=== PATIENT | female | born 1940 | race Caucasian/White ===

== ENCOUNTER 2019-02-14 20:26 | Emergency (ER) | payer MEDICARE, OTHER ==
[~2019-02-14] VITALS: Ht 170.2 cm; Wt 86.2 kg
[~2019-02-14 20:26] MED LIST: ACET325 PO; ATOR10 PO; ATOR20 PO; DIGO.125 PO; HYDACE5 PO; LISI5 PO; METF500 PO; PARO20 PO; SPIR25 PO; WARF2.5 PO
[2019-02-15] MEDS ORDERED: OXYM.05NI (15:05)
== END 2019-02-14 22:15 | disposition home or self-care (01) ==
LOC: ER 20:26
DX: R04.0 Epistaxis (principal); Z88.5 Allergy status to narcotic agent; Z88.8 Allergy status to other drugs, medicaments and biological substances; Z79.899 Other long term (current) drug therapy; Z79.01 Long term (current) use of anticoagulants; Z79.84 Long term (current) use of oral hypoglycemic drugs; F32.9 Major depressive disorder, single episode, unspecified; I50.9 Heart failure, unspecified; Z87.891 Personal history of nicotine dependence
CPT/HCPCS: 99283

== ENCOUNTER 2019-09-09 16:43 | Inpatient (IN) | payer MEDICARE ==
[~2019-09-09] VITALS: Ht 170.2 cm; Wt 99.6 kg
[~2019-09-09 16:43] MED LIST changes: -DIGO.125 PO; +DIGOX250 MCG PO; +OXYM.05NI
[2019-09-09 20:17] LABS: Source, Urine Clean Catch
[2019-09-09 20:20] LABS: Bilirubin, Urine Neg (Neg); Blood, Urine 2+ (Neg); Glucose Qualitative, Urine 4+ (Neg); Ketones, Urine 1+ (Neg); Leukocyte Esterase, Urine 1+ (Neg); Nitrite, Urine Pos (Neg); Protein, Urine 1+ (Neg); Urobilinogen, Urine NORM (Normal)
[2019-09-09 20:28] LABS: Appearance, Urine Hazy (Clear); Bacteria Many /hpf; Color, Urine Yellow (P-Yellow); Red Blood Cells, Urine 0-2 /hpf (0-2); Squamous Epithelial Cells Many /hpf (Few)
[2019-09-09 21:01] LABS: BASOPHILS ABSOLUTE AUTO 0.05 K/mm3 (0.00-0.23); BASOPHILS PERCENT AUTO 0 % (0-2); EOSINOPHILS ABSOLUTE AUTO 0.02 K/mm3 (0.00-0.68); EOSINOPHILS PERCENT AUTO 0 % (0-6); Hematocrit 36.8 % (33.0-51.0); Hemoglobin 12.6 g/dL (11.5-16.0); IMMATURE GRAN ABSOLUTE AUTO 0.05 K/mm3 (0.00-0.10); IMMATURE GRAN PERCENT AUTO 0 % (0-1); LYMPHOCYTES ABSOLUTE AUTO 1.05 K/mm3 (0.84-5.20); LYMPHOCYTES PERCENT AUTO 8 % (21-46); MONOCYTES ABSOLUTE AUTO 0.82 K/mm3 (0.16-1.47); MONOCYTES PERCENT AUTO 7 % (4-13); Mean Corpuscular HGB 31.7 pg (26.0-34.0); Mean Corpuscular HGB Conc 34.2 g/dL (31.5-36.5); Mean Corpuscular Volume 93 fL (80-100); Mean Platelet Volume 9.1 fL (9.1-12.4); NEUTROPHILS PERCENT AUTO 84 % (41-73); Platelet Count 227 K/mm3 (150-400); RDW Coefficient Variation 13.6 % (11.7-14.2); RDW Standard Deviation 46.2 fL (35.1-46.3); Red Blood Cell Count 3.98 M/mm3 (3.80-5.20); White Blood Cell Count 12.69 K/mm3 (4.00-11.30)
[2019-09-09 21:17] LABS: International Normalized Ratio 3.72
[2019-09-09 21:20] LABS: Alanine Aminotransfer (ALT/SGP 24 U/L (12-78); Albumin, Blood 3.3 g/dL (3.4-5.0); Albumin/Globulin Ratio 1.2 (0.8-1.8); Alk Phos 64 U/L (50-136); Anion Gap 8 mmol/L (6-16); Aspartate Aminotrans (AST/SGOT 29 U/L (12-37); Blood Urea Nitrogen 13 mg/dL (8-24); Bun/Creatinine Ratio 23.4 (12.0-20.0); CO2, Blood 24 mmol/L (21-32); Calcium, Blood 8.5 mg/dL (8.5-10.1); Chloride, Blood 107 mmol/L (98-108); Creatinine, Blood 0.56 mg/dL (0.40-1.00); Globulin, Blood 2.8 g/dL (2.2-4.0); Glomerular Filtration Rate >60 (60-); Glucose, Blood 219 mg/dL (70-99); Potassium, Blood 4.6 mmol/L (3.5-5.5); Sodium, Blood 139 mmol/L (136-145); Total Protein, Blood 6.1 g/dL (6.4-8.2)
[2019-09-09 23:35] LABS: Source, Urine Catheter
[2019-09-09 23:50] LABS: Bilirubin, Urine Neg (Neg); Blood, Urine 1+ (Neg); Glucose Qualitative, Urine 4+ (Neg); Ketones, Urine 1+ (Neg); Leukocyte Esterase, Urine 1+ (Neg); Nitrite, Urine Pos (Neg); Protein, Urine 1+ (Neg); Specific Gravity, Urine 1.025 (1.003-1.022); Urobilinogen, Urine NORM (Normal)
[2019-09-09 23:58] LABS: Appearance, Urine Hazy (Clear); Bacteria Many /hpf; Color, Urine Amber (P-Yellow); Red Blood Cells, Urine Rare /hpf (0-2); Squamous Epithelial Cells Rare /hpf (Few); White Blood Cells, Urine 0-2 /hpf (0-5)
--- NOTE | 2019-09-10 07:15 | NUR ---
Patient arrived from the ER at approximately 2044. labs were drawn in the ER just prior to discharge to the floor. Critical lab @2230 lactic acid 3.0. results called to Azul Maldonado NP. see orders for changes. form [id number], 3 liters of NS.09% were infused. along with antibiotics. A hathaway cath was placed due to femur fracture and IV fluids. another UA was sent from . patient slept sporatically throughtout the morning. repor to Jr lopez.
[2019-09-10 08:20] LABS: International Normalized Ratio 1.56
[2019-09-10 08:25] LABS: Prothrombin Time Results 15.9 Sec (9.7-11.5)
--- NOTE | 2019-09-10 09:32 | NUR ---
DR GONZALEZ IN AND APPLIED KNEE IMMOBILIZE TO RIGHT LEG
--- NOTE | 2019-09-10 18:00 | NUR ---
SUMMARY PATIENT ORIENTED TO PERSON, PLACE BUT HAS DIFFICULTY RECALLING PREVIOUS CONVERSATIONS SUCH THAT SHE WILL BE HAVING SURGERY TOMORROW. PT COOPERATIVE AND USES CALL LIGHT. RIGHT KNEE IMMOBILIZER IN PLACE AND PATIENT DENIES ANY NUMBNESS OR TINGLING OF EXTREMITIES
[2019-09-11 03:49] LABS: BASOPHILS ABSOLUTE AUTO 0.05 K/mm3 (0.00-0.23); BASOPHILS PERCENT AUTO 1 % (0-2); EOSINOPHILS ABSOLUTE AUTO 0.08 K/mm3 (0.00-0.68); EOSINOPHILS PERCENT AUTO 1 % (0-6); Hematocrit 27.5 % (33.0-51.0); Hemoglobin 9.2 g/dL (11.5-16.0); IMMATURE GRAN ABSOLUTE AUTO 0.04 K/mm3 (0.00-0.10); IMMATURE GRAN PERCENT AUTO 1 % (0-1); LYMPHOCYTES ABSOLUTE AUTO 1.15 K/mm3 (0.84-5.20); LYMPHOCYTES PERCENT AUTO 15 % (21-46); MONOCYTES ABSOLUTE AUTO 0.64 K/mm3 (0.16-1.47); MONOCYTES PERCENT AUTO 8 % (4-13); Mean Corpuscular HGB 31.2 pg (26.0-34.0); Mean Corpuscular HGB Conc 33.5 g/dL (31.5-36.5); Mean Corpuscular Volume 93 fL (80-100); Mean Platelet Volume 9.1 fL (9.1-12.4); NEUTROPHILS PERCENT AUTO 75 % (41-73); Platelet Count 162 K/mm3 (150-400); RDW Coefficient Variation 13.8 % (11.7-14.2); RDW Standard Deviation 46.4 fL (35.1-46.3); Red Blood Cell Count 2.95 M/mm3 (3.80-5.20); White Blood Cell Count 7.76 K/mm3 (4.00-11.30)
[2019-09-11 04:14] LABS: Alanine Aminotransfer (ALT/SGP 20 U/L (12-78); Albumin, Blood 2.7 g/dL (3.4-5.0); Albumin/Globulin Ratio 1.1 (0.8-1.8); Alk Phos 54 U/L (50-136); Anion Gap 7 mmol/L (6-16); Aspartate Aminotrans (AST/SGOT 17 U/L (12-37); Bilirubin, Total 1.4 mg/dL (0.1-1.0); Blood Urea Nitrogen 7 mg/dL (8-24); Bun/Creatinine Ratio 13.2 (12.0-20.0); CO2, Blood 26 mmol/L (21-32); Calcium, Blood 7.8 mg/dL (8.5-10.1); Chloride, Blood 107 mmol/L (98-108); Creatinine, Blood 0.53 mg/dL (0.40-1.00); Globulin, Blood 2.4 g/dL (2.2-4.0); Glomerular Filtration Rate >60 (60-); Glucose, Blood 165 mg/dL (70-99); Magnesium, Blood 1.9 mg/dL (1.6-2.4); Potassium, Blood 3.5 mmol/L (3.5-5.5); Sodium, Blood 140 mmol/L (136-145); Total Protein, Blood 5.1 g/dL (6.4-8.2)
[2019-09-11 04:57] LABS: Percent Saturation 27.3 % (15.0-50.0)
--- NOTE | 2019-09-11 05:22 | NUR ---
SHIFT SUMMARY PT IS ALERT, ORIENTED BUT WITH AN "OFF" DEMEANOR. FAMILY VOICES SOME CONCERN FOR EARLY ONSET ALZ. PT HAS REQUESTED TO SLEEP AND HAVE MINIMAL INTERRUPTIONS BY STAFF. NPO SINCE MIDNIGHT FOR PROCEDURE. CONT PULSE OX IN PLACE. TELEMETRY IN PLACE; NO ACUTE EVENTS. DENIES PAIN. WEAVER CATH DRAINING AND PATENT. NO OTHER CHANGES TO REPORT. WILL CONT TO MONIOTR AND PROVIDE CARE UNTIL PRESUMED BY ONCOMING RN.
--- NOTE | 2019-09-11 08:13 | NUR ---
09/11/19 0813 Slick Martinez PT HAS WEAVER CATH IN PLACE PRIOR TO ARRIVAL TO OR.
--- NOTE | 2019-09-11 08:19 | NUR ---
PT TAKEN TO SURGERY AT THIS TIME.
[2019-09-11 08:48] LABS: International Normalized Ratio 1.14; Prothrombin Time Results 11.9 Sec (9.7-11.5)
--- NOTE | 2019-09-11 12:56 | NUR ---
PT ARRIVED BACK TO THE ROOM AT APPROXIMATELY 1145. PT IS DROWSY BUT IS ABLE TO WAKE UP AND CARRY ON A CONVERSATION. PAIN MEDICATION PROVIDED. WILL CONTINUE TO MONITOR.
--- NOTE | 2019-09-11 15:42 | NUR ---
HOME MEDICATIONS HOME MEDICATION LIST UPDATED BASED ON CURRENT MEDICATION LIST FROM PATIENT'S PHARMACY. DR. ARIAS NOTIFIED.
--- NOTE | 2019-09-11 17:36 | NUR ---
SHIFT SUMMARY PAIN HAS BEEN MANAGED WITH PO AND IV PAIN MEDICATION. PT HAS BEEN ALERT AND ORIENTED POST-OP. SHE WAS ABLE TO WORK WITH THERAPY, BUT BECAME PAINFUL. TOLERATION PO WELL. VSS. WILL MONITOR UNTIL REPORT TO ONCOMING RN.
[2019-09-12 04:22] LABS: BASOPHILS ABSOLUTE AUTO 0.03 K/mm3 (0.00-0.23); BASOPHILS PERCENT AUTO 0 % (0-2); EOSINOPHILS ABSOLUTE AUTO 0.05 K/mm3 (0.00-0.68); EOSINOPHILS PERCENT AUTO 1 % (0-6); Hematocrit 24.8 % (33.0-51.0); Hemoglobin 8.4 g/dL (11.5-16.0); IMMATURE GRAN ABSOLUTE AUTO 0.07 K/mm3 (0.00-0.10); IMMATURE GRAN PERCENT AUTO 1 % (0-1); LYMPHOCYTES ABSOLUTE AUTO 1.24 K/mm3 (0.84-5.20); LYMPHOCYTES PERCENT AUTO 13 % (21-46); MONOCYTES ABSOLUTE AUTO 0.94 K/mm3 (0.16-1.47); MONOCYTES PERCENT AUTO 10 % (4-13); Mean Corpuscular HGB 32.2 pg (26.0-34.0); Mean Corpuscular HGB Conc 33.9 g/dL (31.5-36.5); Mean Corpuscular Volume 95 fL (80-100); Mean Platelet Volume 9.1 fL (9.1-12.4); NEUTROPHILS ABSOLUTE AUTO 7.58 K/mm3 (1.96-9.15); NEUTROPHILS PERCENT AUTO 77 % (41-73); NRBC ABSOLUTE 0.02 K/mm3 (0.00-0.02); NRBC Auto 0.2 /100 WBC (0.0-0.2); Platelet Count 177 K/mm3 (150-400); RDW Coefficient Variation 13.7 % (11.7-14.2); Red Blood Cell Count 2.61 M/mm3 (3.80-5.20); White Blood Cell Count 9.91 K/mm3 (4.00-11.30)
[2019-09-12 04:36] LABS: International Normalized Ratio 1.05; Prothrombin Time Results 11.1 Sec (9.7-11.5)
--- NOTE | 2019-09-12 04:40 | NUR ---
SHIFT SUMMARY POD 1 ORIF RIGHT FEMUR. PATIENT HAS BEEN AA0X4 DURING SHIFT. FORGETFUL AT TIMES. REDIRECTED WELL. VSS. MEDICATED FOR PAIN PER EMAR. TOELRATING WELL. PLEASANT THROUGHOUT SHIFT. SLEEPING THROUGHOUT SHIFT. RECEIVED A FACE MASK TO HELP SLEEP. WEAVER PATENT AND DRAINING. AQUACEL IN PLACE CDI.
[2019-09-12 04:41] LABS: Alanine Aminotransfer (ALT/SGP 22 U/L (12-78); Albumin, Blood 2.6 g/dL (3.4-5.0); Alk Phos 49 U/L (50-136); Anion Gap 4 mmol/L (6-16); Aspartate Aminotrans (AST/SGOT 15 U/L (12-37); Bilirubin, Total 0.9 mg/dL (0.1-1.0); Blood Urea Nitrogen 13 mg/dL (8-24); Bun/Creatinine Ratio 22.8 (12.0-20.0); CO2, Blood 28 mmol/L (21-32); Calcium, Blood 7.8 mg/dL (8.5-10.1); Chloride, Blood 104 mmol/L (98-108); Creatinine, Blood 0.57 mg/dL (0.40-1.00); Globulin, Blood 2.6 g/dL (2.2-4.0); Glomerular Filtration Rate >60 (60-); Glucose, Blood 165 mg/dL (70-99); Potassium, Blood 3.9 mmol/L (3.5-5.5); Sodium, Blood 136 mmol/L (136-145); Total Protein, Blood 5.2 g/dL (6.4-8.2)
[2019-09-12 09:45] LABS: International Normalized Ratio 1.04
--- NOTE | 2019-09-12 17:17 | NUR ---
SHIFT SUMMARY PT HAS BEEN IN BED MOST OF THE DAY. SHE HAD VISITORS TODAY. REPORTED NO PAIN EXCEPT WITH MOVEMENT. MEG LEE'Portillo AT 1700. PT UP TO CHAIR FOR DINNER. ATTENS IN PLACE, CALL LIGHT IN PLACE. DRESSINGS CDI. ASSISTED WITH ADL'S PRN.
--- NOTE | 2019-09-13 04:00 | NUR ---
SHIFT SUMMARY POD 2 PT RIGHT ORIF OF FEMUR PATIENT ALERT AND ORIENTED. CONFUSED AT TIME. DRESSINGS ON KNEE AND RIGHT LEG CDI. LEG IS SWOLLEN AND BRUISED WITH NO CHANGED NOTICED SINCE BEGINNING OF SHIFT. BRUISING ON BACK AND ABDOMEN UNCHANGED. PATIENT HAD WEAVER REMOVED YESTERDAY 09-12. PATIENT INC OF BLADDER AT TIMES BUT WILL CALL FOR BED OVALLE. HAS BEEN VOIDING WELL SINCE WEAVER REMOVED. DENIES PAIN. HAS BEEN RESTING IN BED DURING SHIFT.
[2019-09-13 04:49] LABS: BASOPHILS ABSOLUTE AUTO 0.04 K/mm3 (0.00-0.23); BASOPHILS PERCENT AUTO 0 % (0-2); EOSINOPHILS PERCENT AUTO 2 % (0-6); Hematocrit 22.3 % (33.0-51.0); Hemoglobin 7.6 g/dL (11.5-16.0); IMMATURE GRAN ABSOLUTE AUTO 0.12 K/mm3 (0.00-0.10); IMMATURE GRAN PERCENT AUTO 1 % (0-1); LYMPHOCYTES ABSOLUTE AUTO 1.48 K/mm3 (0.84-5.20); LYMPHOCYTES PERCENT AUTO 15 % (21-46); MONOCYTES ABSOLUTE AUTO 0.95 K/mm3 (0.16-1.47); MONOCYTES PERCENT AUTO 10 % (4-13); Mean Corpuscular HGB 32.3 pg (26.0-34.0); Mean Corpuscular HGB Conc 34.1 g/dL (31.5-36.5); Mean Corpuscular Volume 95 fL (80-100); Mean Platelet Volume 9.2 fL (9.1-12.4); NEUTROPHILS ABSOLUTE AUTO 6.95 K/mm3 (1.96-9.15); NEUTROPHILS PERCENT AUTO 71 % (41-73); NRBC ABSOLUTE 0.04 K/mm3 (0.00-0.02); NRBC Auto 0.4 /100 WBC (0.0-0.2); Platelet Count 182 K/mm3 (150-400); RDW Coefficient Variation 14.1 % (11.7-14.2); RDW Standard Deviation 47.6 fL (35.1-46.3); Red Blood Cell Count 2.35 M/mm3 (3.80-5.20); White Blood Cell Count 9.74 K/mm3 (4.00-11.30)
[2019-09-13 05:03] LABS: International Normalized Ratio 1.04
[2019-09-13 05:11] LABS: Anion Gap 8 mmol/L (6-16); Blood Urea Nitrogen 15 mg/dL (8-24); CO2, Blood 26 mmol/L (21-32); Calcium, Blood 7.8 mg/dL (8.5-10.1); Chloride, Blood 105 mmol/L (98-108); Glomerular Filtration Rate >60 (60-); Glucose, Blood 170 mg/dL (70-99); Potassium, Blood 3.4 mmol/L (3.5-5.5); Sodium, Blood 139 mmol/L (136-145)
--- NOTE | 2019-09-13 05:19 | NUR ---
CALLED DR SANTANA RELATED TO HBG OF 7.6, LEG SWELLING AND BRUISING ON BACK OF LEG. ORDERS FOR 1 UNIT PRBC GIVEN TO BE INFUSED. PATIENT DENIES NEEDS AT THIS TIME TIME. AND IS RESTING IN BED CALLING APPROPRIATLY.
--- NOTE | 2019-09-13 05:56 | NUR ---
BLOOD TRANSFUSION BEGAN. LUNG SOUNDS CLEAR. PATIENT LAYING IN BED.
--- NOTE | 2019-09-13 06:24 | NUR ---
H&H: DR GONZALEZ NOTIFIED OF PT AM H&H LEVELS. NOTIFIED OF INC SWELLING AND BRUISING. VITALS REVIEWED. NOTIFIED OF HOSPITALIST PLAN TO TRANSFUSE 1 UNIT PRBC THIS AM.
--- NOTE | 2019-09-13 07:43 | NUR ---
DISCUSSED PT'S STATUS OF RECIEVING BLOOD. DISCUSSED LOVENOX ORDERS/PLT COUNT. ISTRATE REPORTS TO GIVE LOVENOX ORDERED.
--- NOTE | 2019-09-13 08:09 | NUR ---
PT WORKING WITH THERAPY.
[2019-09-13 10:01] LABS: BASOPHILS ABSOLUTE AUTO 0.07 K/mm3 (0.00-0.23); BASOPHILS PERCENT AUTO 1 % (0-2); EOSINOPHILS ABSOLUTE AUTO 0.12 K/mm3 (0.00-0.68); EOSINOPHILS PERCENT AUTO 1 % (0-6); Hematocrit 25.4 % (33.0-51.0); Hemoglobin 8.3 g/dL (11.5-16.0); IMMATURE GRAN ABSOLUTE AUTO 0.11 K/mm3 (0.00-0.10); IMMATURE GRAN PERCENT AUTO 1 % (0-1); LYMPHOCYTES ABSOLUTE AUTO 0.81 K/mm3 (0.84-5.20); LYMPHOCYTES PERCENT AUTO 9 % (21-46); MONOCYTES ABSOLUTE AUTO 0.72 K/mm3 (0.16-1.47); MONOCYTES PERCENT AUTO 8 % (4-13); Mean Corpuscular HGB 30.9 pg (26.0-34.0); Mean Corpuscular HGB Conc 32.7 g/dL (31.5-36.5); Mean Corpuscular Volume 94 fL (80-100); Mean Platelet Volume 9.4 fL (9.1-12.4); NEUTROPHILS ABSOLUTE AUTO 6.77 K/mm3 (1.96-9.15); NEUTROPHILS PERCENT AUTO 79 % (41-73); NRBC ABSOLUTE 0.02 K/mm3 (0.00-0.02); NRBC Auto 0.2 /100 WBC (0.0-0.2); Platelet Count 194 K/mm3 (150-400); RDW Coefficient Variation 14.7 % (11.7-14.2); Red Blood Cell Count 2.69 M/mm3 (3.80-5.20)
--- NOTE | 2019-09-13 12:46 | NUR ---
DISCHARGE: PT RECENTLY DISCHARGED TO [facility] REPORT GIVEN TO LAURA. FAMILY PRESENT WHEN TRANSPORT WAS HERE TO GET PT. IV WAS OUT WNL. PT BEEN MED FOR PAIN. PT REPORTED HAVING FLU AND PNEUM SHOT ALREADY. PT SENT WITH BELONGINGS AND DRESSING SUPPLIES. [employer] ASSISTED WITH DISCHARGE. DR LEACHTRATE AWARE OF BLOOD REDRAW AFTER UNIT OF BLOOD AND WISHED TO PROCEED WITH DISCHARGE TODAY TO [facility] PT NOT DIZZY OR LIGHTHEADED.
== END 2019-09-13 12:30 | DRG 853 ==
LOC: ER 16:43 → SURS 18:25
PROVIDERS: Family Medicine; Nurse Practitioner Acute Care; Orthopaedic Surgery; Pharmacist; ADMIT Internal Medicine
PROC: 0QSB06Z Reposition Right Lower Femur with Intramedullary Internal Fixation Device, Open Approach (ICD-10-PCS; principal; 2019-09-09)
PROC: 3E02340 Introduction of Influenza Vaccine into Muscle, Percutaneous Approach (ICD-10-PCS; 2019-09-09)
DX: A41.9 Sepsis, unspecified organism (principal); S72.451B Displaced supracondylar fracture without intracondylar extension of lower end of right femur, initial encounter for open fracture type I or II; M97.01XA Periprosthetic fracture around internal prosthetic right hip joint, initial encounter; N39.0 Urinary tract infection, site not specified; I50.32 Chronic diastolic (congestive) heart failure; D62 Acute posthemorrhagic anemia; R65.20 Severe sepsis without septic shock; I48.91 Unspecified atrial fibrillation; Z23 Encounter for immunization; E78.5 Hyperlipidemia, unspecified; F32.9 Major depressive disorder, single episode, unspecified; E11.9 Type 2 diabetes mellitus without complications; I11.0 Hypertensive heart disease with heart failure; E66.01 Morbid (severe) obesity due to excess calories; Z96.653 Presence of artificial knee joint, bilateral; B96.20 Unspecified Escherichia coli [E. coli] as the cause of diseases classified elsewhere; Z79.01 Long term (current) use of anticoagulants
CPT/HCPCS: 36415; 36430; 71045; 73552; 73560-RT; 73700; 80048; 80053; 81001; 82607; 82728; 82746; 82947; 83036; 83540; 83550; 83605; 83735; 85025; 85610; 85730; 86850; 86900; 86901; 86923; 87040; 87077; 87086; 90670; 90686; 93005; 93010; 94762; 96374; 97163; 97166; 97530; 99285-25; A9270; A9270-GY; C1713; C1769; G0008; G0009; J0696; J1100; J1170; J1650; J2405; J2704; J3010; J3430; J7030; J7040; P9016

== ENCOUNTER → 2020-01-12 | Outpatient (CLI) | payer MEDICARE, OTHER ==
[2020-01-12 18:53] LABS: Appearance, Urine Hazy (Clear); Bilirubin, Urine Neg (Neg); Blood, Urine Neg (Neg); Color, Urine Yellow (P-Yellow); Glucose Qualitative, Urine Neg (Neg); Ketones, Urine 1+ (Neg); Leukocyte Esterase, Urine 1+ (Neg); Nitrite, Urine Neg (Neg); Protein, Urine Neg (Neg); Urobilinogen, Urine 1+ (Normal)
[2020-01-12 19:25] LABS: Mucus Mod (0-Heavy)
[2020-01-12 19:26] LABS: Bacteria Mod /hpf; Calcium Oxalate Crystals Few /hpf; Red Blood Cells, Urine 0-2 /hpf (0-2); Squamous Epithelial Cells Few /hpf (Few); Yeast/Fungi Urine Few /hpf
== END | disposition home or self-care (01) ==
LOC: LAB 18:45 → LAB SHORT 18:45
DX: N39.0 Urinary tract infection, site not specified (principal)
CPT/HCPCS: 81001; 87086

== ENCOUNTER → 2020-09-12 | Outpatient (CLI) | payer MEDICARE, OTHER ==
[~2020-09-12] MED LIST changes: +ASCO500 PO; +BISA10S PR; +DIGOX125 MC1 PO; +DOCU100 PO; +DULCOLAX400 MG/5 M PO; +FERSU300 PO; +LOPE2C PO; +Percocet 5-3251 EACH PO; +TUMS500 MG PO; +Ultram50 MG PO; +VITAMIN D3-ALO1 EACH PO
[2020-09-12 16:40] LABS: Protein, Urine Quantitative <5.0 mg/dL (0.0-11.9)
== END ==
LOC: LAB 11:21 → LAB SHORT 11:21 → LAB FUT 09-06 11:30
PROVIDERS: Internal Medicine Nephrology
DX: N18.30 Chronic kidney disease, stage 3 unspecified (principal); D63.1 Anemia in chronic kidney disease; N25.81 Secondary hyperparathyroidism of renal origin; E55.9 Vitamin D deficiency, unspecified; E78.00 Pure hypercholesterolemia, unspecified; D51.8 Other vitamin B12 deficiency anemias; D52.8 Other folate deficiency anemias; D50.9 Iron deficiency anemia, unspecified; R76.9 Abnormal immunological finding in serum, unspecified; R94.5 Abnormal results of liver function studies; R94.6 Abnormal results of thyroid function studies
CPT/HCPCS: 81050; 82043; 82570; 84156

== ENCOUNTER → 2021-01-09 | Outpatient (CLI) | payer MEDICARE, OTHER ==
[2021-01-09 20:13] LABS: BASOPHILS ABSOLUTE AUTO 0.07 K/mm3 (0.00-0.23); BASOPHILS PERCENT AUTO 1 % (0-2); EOSINOPHILS ABSOLUTE AUTO 0.13 K/mm3 (0.00-0.68); EOSINOPHILS PERCENT AUTO 2 % (0-6); Hemoglobin 15.5 g/dL (11.5-16.0); IMMATURE GRAN ABSOLUTE AUTO 0.02 K/mm3 (0.00-0.10); IMMATURE GRAN PERCENT AUTO 0 % (0-1); LYMPHOCYTES ABSOLUTE AUTO 1.47 K/mm3 (0.84-5.20); LYMPHOCYTES PERCENT AUTO 20 % (21-46); MONOCYTES ABSOLUTE AUTO 0.55 K/mm3 (0.16-1.47); MONOCYTES PERCENT AUTO 7 % (4-13); Mean Corpuscular HGB 31.1 pg (26.0-34.0); Mean Corpuscular HGB Conc 33.7 g/dL (31.5-36.5); Mean Corpuscular Volume 92 fL (80-100); Mean Platelet Volume 9.6 fL (9.1-12.4); NEUTROPHILS ABSOLUTE AUTO 5.21 K/mm3 (1.96-9.15); NEUTROPHILS PERCENT AUTO 70 % (41-73); Platelet Count 252 K/mm3 (150-400); RDW Coefficient Variation 12.9 % (11.7-14.2); RDW Standard Deviation 43.5 fL (35.1-46.3); Red Blood Cell Count 4.99 M/mm3 (3.80-5.20); White Blood Cell Count 7.45 K/mm3 (4.00-11.30)
[2021-01-09 20:16] LABS: International Normalized Ratio 2.1; Prothrombin Time Results 21.5 Sec (9.7-11.5)
[2021-01-09 20:32] LABS: Cholesterol 183 mg/dL (50-200); Ferritin, Serum 59 ng/mL (8-252); HDL Cholesterol 46 mg/dL (>39); LDL/HDL RATIO 1.4; Low Density Lipoprotein Chol 63 mg/dL (0-110); Triglycerides 371 mg/dL (30-160); Very Low Density Lipoprot Chol 74 mg/dL (6-32)
[2021-01-10 20:41] LABS: Alanine Aminotransfer (ALT/SGP 20 U/L (12-78); Albumin, Blood 3.7 g/dL (3.4-5.0); Alk Phos 68 U/L (50-136); Anion Gap 8 mmol/L (6-16); Aspartate Aminotrans (AST/SGOT 16 U/L (12-37); Bilirubin, Total 0.6 mg/dL (0.1-1.0); Blood Urea Nitrogen 20 mg/dL (8-24); Bun/Creatinine Ratio 27.3 (12.0-20.0); CO2, Blood 24 mmol/L (21-32); Calcium, Blood 8.5 mg/dL (8.5-10.1); Chloride, Blood 104 mmol/L (98-108); Creatinine, Blood 0.73 mg/dL (0.40-1.00); Globulin, Blood 3.6 g/dL (2.2-4.0); Glomerular Filtration Rate >60 (60-); Glucose, Blood 86 mg/dL (70-99); Sodium, Blood 136 mmol/L (136-145); Total Protein, Blood 7.3 g/dL (6.4-8.2)
== END | disposition home or self-care (01) ==
LOC: LAB 18:12 → LAB SHORT 18:12
PROVIDERS: Registered Nurse
DX: E11.9 Type 2 diabetes mellitus without complications (principal); D64.9 Anemia, unspecified; I48.91 Unspecified atrial fibrillation; E78.5 Hyperlipidemia, unspecified; I10 Essential (primary) hypertension
CPT/HCPCS: 80053; 80061; 80162; 82728; 83036; 83880; 85025; 85610

== ENCOUNTER → 2021-02-05 | Outpatient (CLI) | payer MEDICARE, OTHER ==
[~2021-02-05] MED LIST changes: -ASCO500 PO; -BISA10S PR; -DIGOX125 MC1 PO; -DOCU100 PO; -DULCOLAX400 MG/5 M PO; -FERSU300 PO; -LOPE2C PO; -Percocet 5-3251 EACH PO; -TUMS500 MG PO; -VITAMIN D3-ALO1 EACH PO
[2021-02-05 12:40] LABS: Source, Urine Clean Catch
[2021-02-05 13:09] LABS: Appearance, Urine Cloudy (Clear); Bilirubin, Urine Neg (Neg); Blood, Urine 1+ (Neg); Color, Urine Yellow (P-Yellow); Glucose Qualitative, Urine 1+ (Neg); Ketones, Urine 2+ (Neg); Leukocyte Esterase, Urine 1+ (Neg); Nitrite, Urine Neg (Neg); Protein, Urine 1+ (Neg); Specific Gravity, Urine 1.025 (1.003-1.022); Urobilinogen, Urine 2+ (Normal)
[2021-02-05 13:42] LABS: Bacteria Many /hpf; Squamous Epithelial Cells Many /hpf (Few)
== END | disposition home or self-care (01) ==
LOC: LAB SHORT 11:00
PROVIDERS: Nurse Practitioner Family
DX: E11.29 Type 2 diabetes mellitus with other diabetic kidney complication (principal)
CPT/HCPCS: 81001; 87086

== ENCOUNTER 2021-02-27 09:20 | Emergency (ER) | payer MEDICARE, OTHER ==
[~2021-02-27] VITALS: Ht 170.2 cm; Wt 80.7 kg
== END 2021-02-27 14:21 | disposition home or self-care (01) ==
LOC: ER 09:20
DX: S40.012A Contusion of left shoulder, initial encounter (principal); S70.02XA Contusion of left hip, initial encounter; E78.00 Pure hypercholesterolemia, unspecified; I11.0 Hypertensive heart disease with heart failure; I50.9 Heart failure, unspecified; I48.91 Unspecified atrial fibrillation; Z88.5 Allergy status to narcotic agent; Z88.8 Allergy status to other drugs, medicaments and biological substances; Z79.01 Long term (current) use of anticoagulants; Z79.899 Other long term (current) drug therapy; W18.30XA Fall on same level, unspecified, initial encounter
CPT/HCPCS: 71045; 73060; 73502; 99284-25; A9270

== ENCOUNTER 2021-03-02 19:22 | Emergency (ER) | payer MEDICARE, OTHER ==
[~2021-03-02] VITALS: Ht 170.2 cm; Wt 81.7 kg
[2021-03-02] MEDS ORDERED: TUMS500 MG PO (19:52)
[2021-03-02] MEDS ORDERED: DOCU100 PO (19:53)
[2021-03-02] MEDS ORDERED: DIGOX125 MC1 PO (19:53)
[2021-03-02] MEDS ORDERED: FERSU300 PO (19:54)
[2021-03-02] MEDS ORDERED: VITAMIN D3-ALO1 EACH PO (19:55)
[2021-03-02] MEDS ORDERED: ASCO500 PO (19:55)
[2021-03-02] MEDS ORDERED: Percocet 5-3251 EACH PO (19:57)
[2021-03-02] MEDS ORDERED: BISA10S PR (20:00)
[2021-03-02] MEDS ORDERED: LOPE2C PO (20:01)
[2021-03-02] MEDS ORDERED: DULCOLAX400 MG/5 M PO (20:02)
== END 2021-03-02 21:45 | disposition home or self-care (01) ==
LOC: ER 19:22
DX: S20.224A Contusion of middle back wall of thorax, initial encounter (principal); E78.5 Hyperlipidemia, unspecified; I11.0 Hypertensive heart disease with heart failure; I50.9 Heart failure, unspecified; I48.91 Unspecified atrial fibrillation; Z79.01 Long term (current) use of anticoagulants; Z88.5 Allergy status to narcotic agent; Z79.899 Other long term (current) drug therapy; W01.198A Fall on same level from slipping, tripping and stumbling with subsequent striking against other object, initial encounter
CPT/HCPCS: 72070; 99283-25; A9270

== ENCOUNTER 2021-03-11 16:36 | Emergency (ER) | payer MEDICARE, OTHER ==
[~2021-03-11] VITALS: Ht 170.2 cm; Wt 95.2 kg
[~2021-03-11 16:36] MED LIST changes: +ASCO500 PO; +BISA10S PR; +DIGOX125 MC1 PO; +DOCU100 PO; +DULCOLAX400 MG/5 M PO; +FERSU300 PO; +LOPE2C PO; +Percocet 5-3251 EACH PO; +TUMS500 MG PO; +VITAMIN D3-ALO1 EACH PO
== END 2021-03-11 19:57 | disposition home or self-care (01) ==
LOC: ER 16:36
DX: S00.11XA Contusion of right eyelid and periocular area, initial encounter (principal); I11.0 Hypertensive heart disease with heart failure; I50.9 Heart failure, unspecified; I48.91 Unspecified atrial fibrillation; E78.5 Hyperlipidemia, unspecified; Z79.01 Long term (current) use of anticoagulants; Z88.8 Allergy status to other drugs, medicaments and biological substances; Z88.5 Allergy status to narcotic agent; Z79.899 Other long term (current) drug therapy; W01.10XA Fall on same level from slipping, tripping and stumbling with subsequent striking against unspecified object, initial encounter
CPT/HCPCS: 70450; 72125; 99284-25

== ENCOUNTER → 2021-03-12 | Outpatient (CLI) | payer MEDICARE, OTHER ==
[2021-03-12 11:13] LABS: Source, Urine Clean Catch
[2021-03-12 12:39] LABS: Appearance, Urine Hazy (Clear); Bilirubin, Urine Neg (Neg); Blood, Urine Neg (Neg); Color, Urine Yellow (P-Yellow); Glucose Qualitative, Urine Neg (Neg); Ketones, Urine 1+ (Neg); Leukocyte Esterase, Urine 1+ (Neg); Nitrite, Urine Neg (Neg); Protein, Urine 2+ (Neg); Specific Gravity, Urine 1.015 (1.003-1.022); Urobilinogen, Urine 3+ (Normal); pH, Urine 6.5 (5.0-8.0)
[2021-03-12 13:09] LABS: Bacteria Many /hpf; Red Blood Cells, Urine 0-2 /hpf (0-2); Squamous Epithelial Cells Few /hpf (Few)
== END ==
LOC: LAB SHORT 10:15 → OLS 10:15
PROVIDERS: Family Medicine
DX: N39.0 Urinary tract infection, site not specified (principal); Z88.5 Allergy status to narcotic agent; Z88.8 Allergy status to other drugs, medicaments and biological substances
CPT/HCPCS: 81001; 87086

== ENCOUNTER → 2021-03-16 | Outpatient (CLI) | payer MEDICARE, OTHER ==
[2021-03-16 13:36] LABS: Prothrombin Time Results 46.6 Sec (9.7-11.5)
[2021-03-16 13:49] LABS: International Normalized Ratio 4.71
== END | disposition home or self-care (01) ==
LOC: LAB 10:01 → LAB SHORT 10:01 → LAB FUT 12-13 12:15
PROVIDERS: Nurse Practitioner Family
DX: E78.5 Hyperlipidemia, unspecified (principal); I48.91 Unspecified atrial fibrillation; E11.9 Type 2 diabetes mellitus without complications; D64.9 Anemia, unspecified
CPT/HCPCS: 36415; 85610

== ENCOUNTER 2021-03-22 09:27 | Day surgery (SDC) | payer MEDICARE, OTHER ==
[~2021-03-22] VITALS: Ht 170.2 cm; Wt 83.7 kg
--- NOTE | 2021-03-22 09:43 | NUR ---
03/22/21 0943 Ebony Burton CHARTING BY VONNIE AIKEN RN
== END 2021-03-22 11:30 | disposition home or self-care (01) ==
LOC: ORSCSDS 09:27
PROVIDERS: Ophthalmology
PROC: 08RK3JZ Replacement of Left Lens with Synthetic Substitute, Percutaneous Approach (ICD-10-PCS; principal; 2021-03-22 10:30)
DX: H25.12 Age-related nuclear cataract, left eye (principal); I10 Essential (primary) hypertension; I50.9 Heart failure, unspecified; E11.9 Type 2 diabetes mellitus without complications; Z79.84 Long term (current) use of oral hypoglycemic drugs; Z79.899 Other long term (current) drug therapy
CPT/HCPCS: 82947; J1100; J2001; J2250; J2405; J3010; J3301; J7040; V2632

== ENCOUNTER 2021-04-12 08:29 | Day surgery (SDC) | payer MEDICARE, OTHER ==
[~2021-04-12] VITALS: Ht 170.2 cm; Wt 82.1 kg
--- NOTE | 2021-04-12 09:05 | NUR ---
04/12/21 0905 Kain Moses TETRACAINE ADMINISTERED INTO THE RIGHT EYE PER ORDERS AT 0854 AND PLEDGET ADMINISTERED AT 0855
== END 2021-04-12 10:27 | disposition home or self-care (01) ==
LOC: ORSCSDS 08:29
PROVIDERS: Ophthalmology
PROC: 08RJ3JZ Replacement of Right Lens with Synthetic Substitute, Percutaneous Approach (ICD-10-PCS; principal; 2021-04-12 09:15)
DX: H25.11 Age-related nuclear cataract, right eye (principal); I48.91 Unspecified atrial fibrillation; Z79.01 Long term (current) use of anticoagulants; Z79.899 Other long term (current) drug therapy
CPT/HCPCS: 82947; J2001; J2250; J3010; J3301; J7040; V2632

== ENCOUNTER → 2021-05-18 | Outpatient (CLI) | payer MEDICARE, OTHER ==
[~2021-05-18] MED LIST changes: +ATORVASTATIN CA20 MG PO; +PAXIL40 M1 PO; +VITAMIN D31000 UNI1 PO; +WARF5 PO
[2021-05-18 17:07] LABS: Appearance, Urine Clear (Clear); Bilirubin, Urine Neg (Neg); Blood, Urine Neg (Neg); Color, Urine Yellow (P-Yellow); Glucose Qualitative, Urine Neg (Neg); Ketones, Urine Neg (Neg); Leukocyte Esterase, Urine Neg (Neg); Nitrite, Urine Neg (Neg); Protein, Urine 1+ (Neg); Urobilinogen, Urine NORM (Normal)
== END | disposition home or self-care (01) ==
LOC: LAB 13:40 → LAB SHORT 13:40
PROVIDERS: Nurse Practitioner Family
DX: N39.0 Urinary tract infection, site not specified (principal)
CPT/HCPCS: 87086

== ENCOUNTER 2021-06-21 13:52 | Emergency (ER) | payer MEDICARE, OTHER ==
[~2021-06-21] VITALS: Ht 170.2 cm; Wt 81.7 kg
[~2021-06-21 13:52] MED LIST changes: -ATORVASTATIN CA20 MG PO; -PAXIL40 M1 PO; -VITAMIN D31000 UNI1 PO; -WARF5 PO
[2021-06-21 14:15] LABS: BASOPHILS ABSOLUTE AUTO 0.06 K/mm3 (0.00-0.23); BASOPHILS PERCENT AUTO 1 % (0-2); EOSINOPHILS ABSOLUTE AUTO 0.14 K/mm3 (0.00-0.68); EOSINOPHILS PERCENT AUTO 2 % (0-6); Hematocrit 42.6 % (33.0-51.0); Hemoglobin 14.3 g/dL (11.5-16.0); IMMATURE GRAN ABSOLUTE AUTO 0.02 K/mm3 (0.00-0.10); IMMATURE GRAN PERCENT AUTO 0 % (0-1); LYMPHOCYTES ABSOLUTE AUTO 1.52 K/mm3 (0.84-5.20); LYMPHOCYTES PERCENT AUTO 20 % (21-46); MONOCYTES ABSOLUTE AUTO 0.59 K/mm3 (0.16-1.47); MONOCYTES PERCENT AUTO 8 % (4-13); Mean Corpuscular HGB 30.6 pg (26.0-34.0); Mean Corpuscular HGB Conc 33.6 g/dL (31.5-36.5); Mean Corpuscular Volume 91 fL (80-100); NEUTROPHILS ABSOLUTE AUTO 5.27 K/mm3 (1.96-9.15); NEUTROPHILS PERCENT AUTO 69 % (41-73); Platelet Count 219 K/mm3 (150-400); RDW Coefficient Variation 13.3 % (11.7-14.2); RDW Standard Deviation 44.9 fL (35.1-46.3); Red Blood Cell Count 4.68 M/mm3 (3.80-5.20)
[2021-06-21] MEDS ORDERED: ATORVASTATIN CA20 MG PO (14:30)
[2021-06-21] MEDS ORDERED: DIGOX125 MC1 PO (14:31)
[2021-06-21] MEDS ORDERED: FERSU300 PO (14:31)
[2021-06-21] MEDS ORDERED: DOCU100 PO (14:31)
[2021-06-21] MEDS ORDERED: PAXIL40 M1 PO (14:32)
[2021-06-21] MEDS ORDERED: VITAMIN D31000 UNI1 PO (14:32)
[2021-06-21] MEDS ORDERED: ASCO500 PO (14:32)
[2021-06-21] MEDS ORDERED: METF500 PO (14:32)
[2021-06-21] MEDS ORDERED: WARF5 PO ×2 (14:33→14:34)
[2021-06-21 14:39] LABS: International Normalized Ratio 4.65
[2021-06-21 14:47] LABS: Alanine Aminotransfer (ALT/SGP 21 U/L (12-78); Albumin, Blood 3.4 g/dL (3.4-5.0); Albumin/Globulin Ratio 1.2 (0.8-1.8); Alk Phos 57 U/L (50-136); Anion Gap 6 mmol/L (6-16); Aspartate Aminotrans (AST/SGOT 15 U/L (12-37); Beta HCG, Quantitative, Serum 3 mIU/mL (0-3); Bilirubin, Total 0.4 mg/dL (0.1-1.0); Blood Urea Nitrogen 12 mg/dL (8-24); Bun/Creatinine Ratio 21.7 (12.0-20.0); CO2, Blood 27 mmol/L (21-32); Chloride, Blood 105 mmol/L (98-108); Creatinine, Blood 0.55 mg/dL (0.40-1.00); Ethanol (Alcohol), Blood, Med 4 mg/dL; Globulin, Blood 2.9 g/dL (2.2-4.0); Glomerular Filtration Rate >60 (60-); Glucose, Blood 149 mg/dL (70-99); Potassium, Blood 3.8 mmol/L (3.5-5.5); Sodium, Blood 138 mmol/L (136-145); Total Protein, Blood 6.3 g/dL (6.4-8.2)
[2021-06-21 15:05] LABS: Source, Urine Catheter
[2021-06-21 15:20] LABS: Appearance, Urine Hazy (Clear); Bilirubin, Urine Neg (Neg); Blood, Urine Neg (Neg); Color, Urine Amber (P-Yellow); Glucose Qualitative, Urine Neg (Neg); Ketones, Urine Neg (Neg); Leukocyte Esterase, Urine Neg (Neg); Nitrite, Urine Neg (Neg); Protein, Urine Neg (Neg); Specific Gravity, Urine 1.025 (1.003-1.022); Urobilinogen, Urine NORM (Normal)
[2021-06-21 15:49] LABS: Bacteria Many /hpf; Squamous Epithelial Cells Mod /hpf (Few)
[2021-06-21 15:50] LABS: Calcium Oxalate Crystals Mod /hpf
[2021-06-21 15:51] LABS: Mucus Light (0-Heavy)
== END 2021-06-21 18:37 | disposition home or self-care (01) ==
LOC: ER 13:52
PROVIDERS: Student in an Organized Health Care Education/Training Program
DX: S00.11XA Contusion of right eyelid and periocular area, initial encounter (principal); R79.1 Abnormal coagulation profile; I11.0 Hypertensive heart disease with heart failure; I50.9 Heart failure, unspecified; I48.91 Unspecified atrial fibrillation; E78.5 Hyperlipidemia, unspecified; Z88.5 Allergy status to narcotic agent; Z88.8 Allergy status to other drugs, medicaments and biological substances; Z79.899 Other long term (current) drug therapy; Z79.01 Long term (current) use of anticoagulants; Z79.84 Long term (current) use of oral hypoglycemic drugs; W18.30XA Fall on same level, unspecified, initial encounter
CPT/HCPCS: 70450; 72125; 80053; 81001; 83690; 84702; 85025; 85610; 87086; 93005; 93010; G0480; P9612

== ENCOUNTER 2021-07-20 11:03 | Emergency (ER) | payer MEDICARE, OTHER ==
[~2021-07-20] VITALS: Ht 165.1 cm; Wt 70.3 kg
[~2021-07-20 11:03] MED LIST changes: +ATORVASTATIN CA20 MG PO; +PAXIL40 M1 PO; +VITAMIN D31000 UNI1 PO; +WARF5 PO
== END 2021-07-20 14:53 | disposition home or self-care (01) ==
LOC: ER 11:03
DX: S80.11XA Contusion of right lower leg, initial encounter (principal); M79.662 Pain in left lower leg; W19.XXXA Unspecified fall, initial encounter
CPT/HCPCS: 73590; 99283-25

== ENCOUNTER 2021-09-16 13:38 | Emergency (ER) | payer MEDICARE, OTHER ==
[~2021-09-16] VITALS: Ht 170.2 cm; Wt 90.7 kg
[2021-09-16 14:15] LABS: Source, Urine Clean Catch
[2021-09-16 14:20] LABS: Appearance, Urine Cloudy (Clear); Bilirubin, Urine Neg (Neg); Blood, Urine 5+ (Neg); Color, Urine Yellow (P-Yellow); Glucose Qualitative, Urine Neg (Neg); Ketones, Urine 1+ (Neg); Leukocyte Esterase, Urine 3+ (Neg); Nitrite, Urine Pos (Neg); Protein, Urine 3+ (Neg); Specific Gravity, Urine 1.015 (1.003-1.022); Urobilinogen, Urine 1+ (Normal)
[2021-09-16] MEDS ORDERED: MYLANTA MAXIMUM10 ML PO (14:35)
[2021-09-16] MEDS ORDERED: Acetaminophen650 M1 PO (14:35)
[2021-09-16] MEDS ORDERED: BISA10S PR (14:35)
[2021-09-16] MEDS ORDERED: ONDA4 PO (14:36)
[2021-09-16] MEDS ORDERED: LOPE2C PO (14:36)
[2021-09-16] MEDS ORDERED: DULCOLAX400 MG/5 M PO (14:36)
[2021-09-16] MEDS ORDERED: SENNA LAXATIVE8.6 MG PO (14:37)
[2021-09-16] MEDS ORDERED: Percocet 5-3251 EACH PO (14:37)
[2021-09-16 14:44] LABS: Bacteria Many /hpf; Red Blood Cells, Urine 25-50 /hpf (0-2); Squamous Epithelial Cells Many /hpf (Few)
[2021-09-16 14:45] LABS: Amorphous Mod (0-Heavy); Mucus Light (0-Heavy)
== END 2021-09-16 17:34 | disposition home or self-care (01) ==
LOC: ER 13:38
PROVIDERS: Student in an Organized Health Care Education/Training Program
DX: S80.02XA Contusion of left knee, initial encounter (principal); S60.222A Contusion of left hand, initial encounter; S70.02XA Contusion of left hip, initial encounter; N39.0 Urinary tract infection, site not specified; M16.0 Bilateral primary osteoarthritis of hip; M19.041 Primary osteoarthritis, right hand; E78.5 Hyperlipidemia, unspecified; I11.0 Hypertensive heart disease with heart failure; I50.9 Heart failure, unspecified; I48.91 Unspecified atrial fibrillation; D64.9 Anemia, unspecified; Z88.5 Allergy status to narcotic agent; Z79.899 Other long term (current) drug therapy; Z79.84 Long term (current) use of oral hypoglycemic drugs; Z79.01 Long term (current) use of anticoagulants; W19.XXXA Unspecified fall, initial encounter
CPT/HCPCS: 73100; 73120; 73502; 73562-LT; 81001; 87086; 99284-25; A9270

== ENCOUNTER 2021-09-25 23:23 | Inpatient (IN) | payer MEDICARE, OTHER ==
[~2021-09-25] VITALS: Ht 170.2 cm; Wt 80.3 kg
[~2021-09-25 23:23] MED LIST changes: +Acetaminophen650 M1 PO; +MYLANTA MAXIMUM10 ML PO; +ONDA4 PO; +SENNA LAXATIVE8.6 MG PO
[2021-09-26 01:26] LABS: BASOPHILS ABSOLUTE AUTO 0.06 K/mm3 (0.00-0.23); BASOPHILS PERCENT AUTO 1 % (0-2); EOSINOPHILS ABSOLUTE AUTO 0.11 K/mm3 (0.00-0.68); EOSINOPHILS PERCENT AUTO 1 % (0-6); Hematocrit 31.5 % (33.0-51.0); Hemoglobin 10.7 g/dL (11.5-16.0); IMMATURE GRAN ABSOLUTE AUTO 0.05 K/mm3 (0.00-0.10); IMMATURE GRAN PERCENT AUTO 0 % (0-1); LYMPHOCYTES ABSOLUTE AUTO 1.35 K/mm3 (0.84-5.20); LYMPHOCYTES PERCENT AUTO 10 % (21-46); MONOCYTES ABSOLUTE AUTO 0.78 K/mm3 (0.16-1.47); MONOCYTES PERCENT AUTO 6 % (4-13); Mean Corpuscular HGB 31.6 pg (26.0-34.0); Mean Corpuscular Volume 93 fL (80-100); Mean Platelet Volume 9.1 fL (9.1-12.4); NEUTROPHILS ABSOLUTE AUTO 10.65 K/mm3 (1.96-9.15); NEUTROPHILS PERCENT AUTO 82 % (41-73); Platelet Count 273 K/mm3 (150-400); RDW Coefficient Variation 13.2 % (11.7-14.2); Red Blood Cell Count 3.39 M/mm3 (3.80-5.20)
[2021-09-26 01:57] LABS: Prothrombin Time Results >90.0 Sec (9.7-11.5)
[2021-09-26 01:58] LABS: Alanine Aminotransfer (ALT/SGP 28 U/L (12-78); Albumin, Blood 3.1 g/dL (3.4-5.0); Alk Phos 63 U/L (50-136); Anion Gap 12 mmol/L (6-16); Aspartate Aminotrans (AST/SGOT 31 U/L (12-37); Bilirubin, Total 1.1 mg/dL (0.1-1.0); Blood Urea Nitrogen 21 mg/dL (8-24); Bun/Creatinine Ratio 24.4 (12.0-20.0); CO2, Blood 24 mmol/L (21-32); Calcium, Blood 9.1 mg/dL (8.5-10.1); Chloride, Blood 101 mmol/L (98-108); Creatinine, Blood 0.86 mg/dL (0.40-1.00); Digoxin (Lanoxin) 0.92 ug/mL (0.80-2.00); Globulin, Blood 3.1 g/dL (2.2-4.0); Glomerular Filtration Rate >60 (60-); Glucose, Blood 136 mg/dL (70-99); International Normalized Ratio >10.00; Magnesium, Blood 1.7 mg/dL (1.6-2.4); Potassium, Blood 4.2 mmol/L (3.5-5.5); Sodium, Blood 137 mmol/L (136-145); Total Protein, Blood 6.2 g/dL (6.4-8.2); Troponin I <0.015 ng/mL (0.000-0.040)
[2021-09-26 02:41] LABS: Source, Urine Clean Catch
[2021-09-26 02:49] LABS: Appearance, Urine Hazy (Clear); Bilirubin, Urine Neg (Neg); Blood, Urine Neg (Neg); Color, Urine Amber (P-Yellow); Glucose Qualitative, Urine Neg (Neg); Ketones, Urine 1+ (Neg); Leukocyte Esterase, Urine 1+ (Neg); Nitrite, Urine Neg (Neg); Protein, Urine 2+ (Neg); Specific Gravity, Urine 1.025 (1.003-1.022); Urobilinogen, Urine 2+ (Normal)
[2021-09-26 03:04] LABS: Bacteria Many /hpf; Squamous Epithelial Cells Rare /hpf (Few)
[2021-09-26 03:05] LABS: Uric Acid Crystals Mod /hpf
[2021-09-26 04:09] LABS: BASOPHILS ABSOLUTE AUTO 0.05 K/mm3 (0.00-0.23); BASOPHILS PERCENT AUTO 1 % (0-2); EOSINOPHILS ABSOLUTE AUTO 0.15 K/mm3 (0.00-0.68); EOSINOPHILS PERCENT AUTO 1 % (0-6); Hematocrit 27.6 % (33.0-51.0); Hemoglobin 9.3 g/dL (11.5-16.0); IMMATURE GRAN ABSOLUTE AUTO 0.04 K/mm3 (0.00-0.10); IMMATURE GRAN PERCENT AUTO 0 % (0-1); LYMPHOCYTES ABSOLUTE AUTO 1.81 K/mm3 (0.84-5.20); LYMPHOCYTES PERCENT AUTO 17 % (21-46); MONOCYTES ABSOLUTE AUTO 0.75 K/mm3 (0.16-1.47); MONOCYTES PERCENT AUTO 7 % (4-13); Mean Corpuscular HGB 31.3 pg (26.0-34.0); Mean Corpuscular HGB Conc 33.7 g/dL (31.5-36.5); Mean Corpuscular Volume 93 fL (80-100); Mean Platelet Volume 9.1 fL (9.1-12.4); NEUTROPHILS ABSOLUTE AUTO 7.81 K/mm3 (1.96-9.15); NEUTROPHILS PERCENT AUTO 74 % (41-73); Platelet Count 258 K/mm3 (150-400); RDW Coefficient Variation 13.2 % (11.7-14.2); Red Blood Cell Count 2.97 M/mm3 (3.80-5.20); White Blood Cell Count 10.61 K/mm3 (4.00-11.30)
[2021-09-26 08:19] LABS: Alanine Aminotransfer (ALT/SGP 27 U/L (12-78); Albumin, Blood 2.9 g/dL (3.4-5.0); Albumin/Globulin Ratio 1.2 (0.8-1.8); Alk Phos 58 U/L (50-136); Anion Gap 8 mmol/L (6-16); Aspartate Aminotrans (AST/SGOT 23 U/L (12-37); Bilirubin, Total 1.2 mg/dL (0.1-1.0); Blood Urea Nitrogen 22 mg/dL (8-24); Bun/Creatinine Ratio 27.6 (12.0-20.0); CO2, Blood 30 mmol/L (21-32); Calcium, Blood 8.8 mg/dL (8.5-10.1); Chloride, Blood 102 mmol/L (98-108); Globulin, Blood 2.4 g/dL (2.2-4.0); Glomerular Filtration Rate >60 (60-); Glucose, Blood 115 mg/dL (70-99); Potassium, Blood 3.8 mmol/L (3.5-5.5); Sodium, Blood 140 mmol/L (136-145); Total Protein, Blood 5.3 g/dL (6.4-8.2)
[2021-09-26 08:47] LABS: International Normalized Ratio 1.33
[2021-09-26 09:07] LABS: Prothrombin Time Results 13.7 Sec (9.7-11.5)
--- NOTE | 2021-09-26 14:49 | NUR ---
Assumed Care Received report from SUE Gipson-RN. Patient arrived via [facility] with one bag of personal belongings. 2p max with gait belt to transfer from gurney to bed. C/O pain to L hip. Fearful of falling. Able to bear some weight on both lower extremities. A/O to self. Med rec incomplete, patient is fairly confused. Settled to room, call light in reach. Bed alarm on and bed in lowest position. KAMILLE.
[2021-09-26] MEDS ORDERED: ACET500 PO ×2 (15:27→15:28)
[2021-09-26] MEDS ORDERED: Acetaminophen650 M1 PO (15:30)
--- NOTE | 2021-09-26 18:43 | NUR ---
Shift Summary A/O to self. Impulsive and attempting to climb out of bed. High fall risk as patient has had multiple falls at home. C/O 07/22 L hip pain with brief changes and repositioning. Has an abrasion to L knee, wound cleansed and dressed, photo taken. Increased weakness requiring 2p max assist. Incontinent. Appetite is fair. WCTM.
--- NOTE | 2021-09-27 06:03 | NUR ---
SHIFT SUMMARY ASSUMED CARE AT 1900. PT CONFUSED AND AT TIMES AGITATED. LAST NIGHT, HOSPITALIST WAS NOTIFIED ABOUT PT'S AGITATION AND NEW ORDERS WERE RECEIVED. IV HALDOL WAS NOT GIVEN LAST NIGHT DESPITE PT'S AGITATION BECAUSE OF PT'S BLOOD PRESSURE. PT DID EVENTUALLY CALM DOWN AND FALL ASLEEP. PT DID REFUSE HER SCHEDULED EVENING MEDICATION LAST NIGHT. PT IS IMPULSIVE, TRIED TO GET OUT OF BED INDPENDENTLY-FORGETTING HER LIMITATIONS AND HAS POOR INSIGHT. GETS VERY FRUSTRATED WHEN REDIRECTED. CARDIAC TELEMETRY MONITORING CONTINUES, BOX # [id number], SINUS RHYTHM HR 60s-80s. PT DENIED PAIN TO LEFT HIP AND LEFT LOWER EXTREMITY DURING SHIFT. LEFT HIP XRAY RESULTS WERE NEGATIVE FOR FRACTURE. IV SITE BENIGN. ATTENDS IN PLACE PT IS INCONTINENT. BED ALARM REMAINS ACTIVATED. BED IN LOW POSITION WITH THE CALL LIGHT WITHIN EASY REACH BUT PT DOES NOT APPEAR TO UNDERSTAND HOW TO USE IT AFTER TEACHING. PT REFUSING REPOSITIONING/TURNING. WILL CONTINUE TO MONITOR AND REPOSITION/TURN PT ALLOWS. NO MORNING LABS WERE ORDERED TO BE DRAWN THUS FAR.
--- NOTE | 2021-09-27 13:45 | NUR ---
PATIENT DISCHARGED TO [facility] VIA W/C TRANSPORT. IV SALINE LOCK REMOVED WITHOUT INCIDENT. SINCE PT'S OWN CLOTHING WAS SOILED, SHE WAS DRESSED IN DISPOSABLE SCRUBS TO GO HOME. VERBALIZED UNDERSTANSING OF D/C INSTRUCTIONS. D/C INSTRUCTIONS AND MEDICATION LIST FAXED TO [facility]. OFF UNIT AT 1345 VIA W/C. NO BELONGINGS LEFT BEHIND IN ROOM.
== END 2021-09-27 13:44 | disposition home health service (06) | DRG 86 ==
LOC: ER 23:23 → ERHOLD 09-26 03:19 → MEDS 09-26 03:19
PROVIDERS: Student in an Organized Health Care Education/Training Program; ADMIT Family Medicine
PROC: 30233K1 Transfusion of Nonautologous Frozen Plasma into Peripheral Vein, Percutaneous Approach (ICD-10-PCS; principal; 2021-09-26)
DX: S06.6X0A Traumatic subarachnoid hemorrhage without loss of consciousness, initial encounter (principal); I50.32 Chronic diastolic (congestive) heart failure; W18.30XA Fall on same level, unspecified, initial encounter; E78.5 Hyperlipidemia, unspecified; F32.A Depression, unspecified; I48.91 Unspecified atrial fibrillation; I11.0 Hypertensive heart disease with heart failure; R79.1 Abnormal coagulation profile; K59.09 Other constipation; E11.42 Type 2 diabetes mellitus with diabetic polyneuropathy; Z96.653 Presence of artificial knee joint, bilateral; Z87.891 Personal history of nicotine dependence; Z90.89 Acquired absence of other organs; Z88.5 Allergy status to narcotic agent; Z88.8 Allergy status to other drugs, medicaments and biological substances; Z79.01 Long term (current) use of anticoagulants; Z87.440 Personal history of urinary (tract) infections; Z98.890 Other specified postprocedural states; Z79.84 Long term (current) use of oral hypoglycemic drugs; Z79.899 Other long term (current) drug therapy
CPT/HCPCS: 36415; 36430; 70450; 72125; 73502; 80053; 80162; 81001; 82947; 83735; 83880; 84484; 85025; 85610; 86900; 86901; 87086; 93005; 93010; 96365; 96367; 97110; 97162; 97166; 97530; 99285-25; A9270; J3430; J3475; J7030; P9059

== ENCOUNTER 2021-09-28 23:16 | Inpatient (IN) | payer MEDICARE, OTHER ==
[~2021-09-28] VITALS: Ht 170.2 cm; Wt 74.8 kg
[~2021-09-28 23:16] MED LIST changes: +ACET500 PO
[2021-09-28 23:35] LABS: BASOPHILS ABSOLUTE AUTO 0.05 K/mm3 (0.00-0.23); BASOPHILS PERCENT AUTO 1 % (0-2); EOSINOPHILS ABSOLUTE AUTO 0.22 K/mm3 (0.00-0.68); EOSINOPHILS PERCENT AUTO 2 % (0-6); Hematocrit 22.9 % (33.0-51.0); Hemoglobin 7.8 g/dL (11.5-16.0); IMMATURE GRAN PERCENT AUTO 1 % (0-1); LYMPHOCYTES ABSOLUTE AUTO 1.65 K/mm3 (0.84-5.20); LYMPHOCYTES PERCENT AUTO 17 % (21-46); MONOCYTES ABSOLUTE AUTO 0.74 K/mm3 (0.16-1.47); MONOCYTES PERCENT AUTO 8 % (4-13); Mean Corpuscular HGB 32.5 pg (26.0-34.0); Mean Corpuscular HGB Conc 34.1 g/dL (31.5-36.5); Mean Corpuscular Volume 95 fL (80-100); Mean Platelet Volume 8.9 fL (9.1-12.4); NEUTROPHILS ABSOLUTE AUTO 7.03 K/mm3 (1.96-9.15); NEUTROPHILS PERCENT AUTO 72 % (41-73); NRBC ABSOLUTE 0.09 K/mm3 (0.00-0.02); NRBC Auto 0.9 /100 WBC (0.0-0.2); Platelet Count 289 K/mm3 (150-400); RDW Coefficient Variation 13.5 % (11.7-14.2); RDW Standard Deviation 45.1 fL (35.1-46.3); White Blood Cell Count 9.79 K/mm3 (4.00-11.30)
[2021-09-28 23:49] LABS: International Normalized Ratio 0.94; Prothrombin Time Results 9.9 Sec (9.7-11.5)
[2021-09-28 23:57] LABS: Alanine Aminotransfer (ALT/SGP 27 U/L (12-78); Albumin, Blood 3.2 g/dL (3.4-5.0); Albumin/Globulin Ratio 0.9 (0.8-1.8); Alk Phos 70 U/L (50-136); Anion Gap 10 mmol/L (6-16); Aspartate Aminotrans (AST/SGOT 24 U/L (12-37); Bilirubin, Total 2.4 mg/dL (0.1-1.0); Blood Urea Nitrogen 24 mg/dL (8-24); Bun/Creatinine Ratio 40.5 (12.0-20.0); CO2, Blood 28 mmol/L (21-32); Calcium, Blood 9.2 mg/dL (8.5-10.1); Chloride, Blood 97 mmol/L (98-108); Creatinine, Blood 0.59 mg/dL (0.40-1.00); Globulin, Blood 3.4 g/dL (2.2-4.0); Glomerular Filtration Rate >60 (60-); Glucose, Blood 135 mg/dL (70-99); Potassium, Blood 3.5 mmol/L (3.5-5.5); Sodium, Blood 135 mmol/L (136-145); Total Protein, Blood 6.6 g/dL (6.4-8.2); Troponin I 0.266 ng/mL (0.000-0.040)
[2021-09-29 02:07] LABS: CPK Creatine Kinase 156 U/L (26-193); Creatine Kinase MB 2.4 ng/mL (0.0-3.6); Creatine Kinase MB Index 1.5 (0.0-4.0); Troponin I 0.277 ng/mL (0.000-0.040)
[2021-09-29 02:45] LABS: Digoxin (Lanoxin) 0.79 ug/mL (0.80-2.00)
[2021-09-29 04:51] LABS: BASOPHILS ABSOLUTE AUTO 0.04 K/mm3 (0.00-0.23); BASOPHILS PERCENT AUTO 1 % (0-2); EOSINOPHILS ABSOLUTE AUTO 0.22 K/mm3 (0.00-0.68); EOSINOPHILS PERCENT AUTO 3 % (0-6); Hematocrit 20.2 % (33.0-51.0); Hemoglobin 6.8 g/dL (11.5-16.0); IMMATURE GRAN ABSOLUTE AUTO 0.08 K/mm3 (0.00-0.10); IMMATURE GRAN PERCENT AUTO 1 % (0-1); LYMPHOCYTES PERCENT AUTO 23 % (21-46); MONOCYTES ABSOLUTE AUTO 0.63 K/mm3 (0.16-1.47); MONOCYTES PERCENT AUTO 7 % (4-13); Mean Corpuscular HGB 32.1 pg (26.0-34.0); Mean Corpuscular HGB Conc 33.7 g/dL (31.5-36.5); Mean Corpuscular Volume 95 fL (80-100); NEUTROPHILS ABSOLUTE AUTO 5.79 K/mm3 (1.96-9.15); NEUTROPHILS PERCENT AUTO 66 % (41-73); NRBC ABSOLUTE 0.06 K/mm3 (0.00-0.02); NRBC Auto 0.7 /100 WBC (0.0-0.2); Platelet Count 252 K/mm3 (150-400); RDW Coefficient Variation 13.9 % (11.7-14.2); RDW Standard Deviation 46.2 fL (35.1-46.3); Red Blood Cell Count 2.12 M/mm3 (3.80-5.20); White Blood Cell Count 8.76 K/mm3 (4.00-11.30)
[2021-09-29 05:44] LABS: Alanine Aminotransfer (ALT/SGP 22 U/L (12-78); Albumin, Blood 2.8 g/dL (3.4-5.0); Albumin/Globulin Ratio 1.1 (0.8-1.8); Alk Phos 62 U/L (50-136); Anion Gap 7 mmol/L (6-16); Aspartate Aminotrans (AST/SGOT 21 U/L (12-37); Bilirubin, Total 2.3 mg/dL (0.1-1.0); Blood Urea Nitrogen 22 mg/dL (8-24); Bun/Creatinine Ratio 38.5 (12.0-20.0); CO2, Blood 29 mmol/L (21-32); Calcium, Blood 8.9 mg/dL (8.5-10.1); Chloride, Blood 99 mmol/L (98-108); Creatinine, Blood 0.57 mg/dL (0.40-1.00); Globulin, Blood 2.6 g/dL (2.2-4.0); Glomerular Filtration Rate >60 (60-); Glucose, Blood 119 mg/dL (70-99); Potassium, Blood 3.6 mmol/L (3.5-5.5); Sodium, Blood 135 mmol/L (136-145); Total Protein, Blood 5.4 g/dL (6.4-8.2)
--- NOTE | 2021-09-29 05:45 | NUR ---
ADMISSION NOTE ADMIT FROM ED. PT CAME IN GOWN TOP AND STILL HAD HER PANTS ON. UPON FURTHER ASSESSMENT, PT'S PANTS WERE SOILED AND SHE HAD MULTIPLE BRUISES TO BILAT LEGS (PICTURES IN CHART). ADMITTED FOR ELEVATED TROPONINS AFTER GLF. PT IS DNI BUT STS WANTS TO BE FULL CODE. PT RECENTLY ADMITTED WITH SUBARACHNOID BLEED AND WAS DISHCARGED HOME. PT SHOULD BE ON BEDREST.
[2021-09-29 07:00] LABS: Percent Saturation 38.8 % (15.0-50.0)
--- NOTE | 2021-09-29 11:48 | NUR ---
ECHOCARDIOGRAM COMPLETE
--- NOTE | 2021-09-29 17:21 | NUR ---
SHIFT SUMMARY PATIENT IS ALERT AND ORIENTED X2-3, PLEASANT AND COOPERATIVE WITH CARE. THE PATIENT RECEIVED 1 UNIT OF BLOOD THIS SHIFT. PATIENT TOLERATED WELL. NO STOOL GUIAC COLLECTED THIS SHIFT. WILL CONTINUE TO TRY. ECHO DONE THIS SHIFT. NO COVERAGE NEEDED PER SLIDING SCALE INSULIN. VSS. NO ACUTE CHANGES. WILL CONTINUE TO CARE FOR THE PATIENT UNTIL SHIFT REPORT IS GIVEN TO ONCOMING NURSE.
--- NOTE | 2021-09-29 19:24 | NUR ---
PULLING OFF TELE LEADS AND CONTINUOUS PULSE OX LEADS. REDIRECTED AND ENCOURAGED TO COMPLY WITH MEDICAL REGIMINE. RATIONALE DISCUSSED. CALL LIGHT IN REACH
--- NOTE | 2021-09-29 21:02 | NUR ---
NOTE CHANGE IN MENTAL STATUS. MORE ANGRY, NON COMPLIANT. CALL PLACED TO MD, HEAD CT ORDERED FOR COMPARISON WITH PREVIOUS HEAD CT. RAILS UP X 4. CALL LIGHT IN REACH
--- NOTE | 2021-09-29 21:39 | NUR ---
ASSISTED TO RADIOLOGY FOR HEAD CT. CT DONE. SEE DOCUMENTATION FOR RESULTS. ASSISTED BACK TO ROOM AND BACK TO BED. RAILS UP X 4 FOR SAFETY PER MD ORDERS. CALL LIGHT IN REACH. TV ON FOR PT REFOCUS.
--- NOTE | 2021-09-30 03:46 | NUR ---
SHIFT SUMMARY PT BECAME INCREASINGLY AGITATED, PULLING OUT HER IV AND TAKING OFF HER BIOX AND TELE. PT PUT INTO MISSY VEST AND HAND RESTRAINTS. PT CONTINUES TO GET MITTEN RESTRAINTS OFF. PT CONFUSED AND WAS SENT FOR A HEAD CT LATE LAST EVENING. HAVE NOT RECEIVED RESULTS. PT IS NON-COMPLIANT WITH CARE. DID NOT REPLACE CONTINUOUS BIOX PT WILL NOT LEAVE IN PLACE. TELE STILL IN PLACE AT THIS TIME. WILL CONTINUE TO MONITOR.
[2021-09-30 04:55] LABS: Hematocrit 22.7 % (33.0-51.0); Hemoglobin 7.6 g/dL (11.5-16.0); Mean Corpuscular HGB 32.1 pg (26.0-34.0); Mean Corpuscular HGB Conc 33.5 g/dL (31.5-36.5); Mean Corpuscular Volume 96 fL (80-100); Mean Platelet Volume 9.1 fL (9.1-12.4); NRBC ABSOLUTE 0.04 K/mm3 (0.00-0.02); NRBC Auto 0.6 /100 WBC (0.0-0.2); Platelet Count 245 K/mm3 (150-400); RDW Coefficient Variation 14.6 % (11.7-14.2); Red Blood Cell Count 2.37 M/mm3 (3.80-5.20); White Blood Cell Count 6.67 K/mm3 (4.00-11.30)
--- NOTE | 2021-09-30 16:13 | NUR ---
SHIFT SUMMARY PATIENT IS ALERT AND ORIENTED X2-3, PLEASANT AND COOPERATIVE WITH CARE. PATIENT IS INCONINENT. ONE PERSON ASSIST WITH THE FWW. TELE DC'D. NO ACUTE CHANGES. VSS. SPOKE WITH FAMILY THIS SHIFT. POSSIBLY RETURNING BACK TO [facility] TOMORROW. WILL CONTINUE TO CARE FOR UNTIL ONCOMING SHIFT REPORT IS MADE.
--- NOTE | 2021-10-01 03:44 | NUR ---
SHIFT SUMMARY NO ACUTE CHANGES IN PT THIS SHIFT. PT INCONTINENT. PT RESTING/SLEEPING MOST OF SHIFT THIS EVENING. PT MAY BE DISCHARGED TODAY IF PLACEMENT CAN BE MADE. CALL LIGHT IS WITHIN REACH AND PT WILL CONTINUE TO BE MONITORED.
[2021-10-01 09:56] LABS: Hematocrit 26.1 % (33.0-51.0); Hemoglobin 8.5 g/dL (11.5-16.0); Mean Corpuscular HGB 32.3 pg (26.0-34.0); Mean Corpuscular HGB Conc 32.6 g/dL (31.5-36.5); Mean Corpuscular Volume 99 fL (80-100); Mean Platelet Volume 8.7 fL (9.1-12.4); NRBC ABSOLUTE 0.04 K/mm3 (0.00-0.02); NRBC Auto 0.5 /100 WBC (0.0-0.2); Platelet Count 294 K/mm3 (150-400); RDW Coefficient Variation 16.4 % (11.7-14.2); RDW Standard Deviation 48.7 fL (35.1-46.3); Red Blood Cell Count 2.63 M/mm3 (3.80-5.20); White Blood Cell Count 7.51 K/mm3 (4.00-11.30)
--- NOTE | 2021-10-01 13:26 | NUR ---
PT DISCHARGED AT 1320 AOX3 WITH CONFUSION. PT COOPERATIVE OF CARE. PT TWO PERSON ASSIST TO WHEELCHAIR. [facility] TO TRANSPORT VIA WHEELCHAIR. PAPERWORK SENT WITH PT. ALL PERSONAL ITEMS COLLECT AND WITH PT. NO DISTRESS NOTED.
== END 2021-10-01 13:26 | disposition home or self-care (01) | DRG 812 ==
LOC: ER 23:16 → MEDS 23:17 → ENPENDDIS 09-30 13:01 → MEDS 09-30 22:01
PROVIDERS: Emergency Medicine; Internal Medicine; Student in an Organized Health Care Education/Training Program; ADMIT Family Medicine
PROC: 30233N1 Transfusion of Nonautologous Red Blood Cells into Peripheral Vein, Percutaneous Approach (ICD-10-PCS; principal; 2021-09-30)
DX: D62 Acute posthemorrhagic anemia (principal); I24.8 Other forms of acute ischemic heart disease; I50.42 Chronic combined systolic (congestive) and diastolic (congestive) heart failure; E11.40 Type 2 diabetes mellitus with diabetic neuropathy, unspecified; I48.91 Unspecified atrial fibrillation; F03.90 Unspecified dementia, unspecified severity, without behavioral disturbance, psychotic disturbance, mood disturbance, and anxiety; E78.5 Hyperlipidemia, unspecified; F32.A Depression, unspecified; I11.0 Hypertensive heart disease with heart failure; K59.09 Other constipation; Z96.653 Presence of artificial knee joint, bilateral; Z87.440 Personal history of urinary (tract) infections; Z90.89 Acquired absence of other organs; Z98.890 Other specified postprocedural states; Z87.891 Personal history of nicotine dependence; Z88.5 Allergy status to narcotic agent; Z88.8 Allergy status to other drugs, medicaments and biological substances; Z79.84 Long term (current) use of oral hypoglycemic drugs; Z79.899 Other long term (current) drug therapy
CPT/HCPCS: 36415; 36430; 70450; 71045; 72125; 80053; 80162; 82550; 82553; 82607; 82728; 82947; 83540; 83550; 84484; 85018; 85025; 85027; 85610; 86850; 86900; 86901; 86923; 93005; 93010; 93306; 94762; 97162; 97530; 99285-25; A9270; G0378; J7050; P9016

== ENCOUNTER → 2021-11-28 | Outpatient (CLI) | payer MEDICARE, OTHER ==
[2021-11-28 16:52] LABS: Source, Urine Clean Catch
[2021-11-28 20:09] LABS: Appearance, Urine Hazy (Clear); Bilirubin, Urine Neg (Neg); Blood, Urine Neg (Neg); Color, Urine Yellow (P-Yellow); Glucose Qualitative, Urine Neg (Neg); Ketones, Urine Neg (Neg); Leukocyte Esterase, Urine Neg (Neg); Nitrite, Urine Neg (Neg); Protein, Urine Neg (Neg); Urobilinogen, Urine 1+ (Normal); pH, Urine 6.5 (5.0-8.0)
[2021-11-28 20:48] LABS: Hyaline Casts 0-2 /lpf (0-2)
[2021-11-28 20:49] LABS: Bacteria Many /hpf; Mucus Light (0-Heavy); Red Blood Cells, Urine 0-2 /hpf (0-2); Squamous Epithelial Cells Few /hpf (Few)
== END | disposition home or self-care (01) ==
LOC: LAB SHORT 15:40 → LAB 15:40
PROVIDERS: Nurse Practitioner Family
DX: N39.0 Urinary tract infection, site not specified (principal)
CPT/HCPCS: 81001; 87086

== ENCOUNTER → 2022-01-15 | Outpatient (CLI) | payer MEDICARE, OTHER ==
[~2022-01-15] MED LIST changes: +ALUM-MAG HYDROX30 ML PO; +Acerola C500 MG PO; +CEFU250T47 PO; +Hygroton50 MG PO; +Milk Of Ma400 MG/5 M PO; +PREVAGEN PO; +Voltaren100 GM TOP
[2022-01-15 15:50] LABS: Source, Urine Clean Catch
[2022-01-15 17:33] LABS: Appearance, Urine Cloudy (Clear); Bilirubin, Urine Neg (Neg); Blood, Urine 2+ (Neg); Color, Urine Yellow (P-Yellow); Glucose Qualitative, Urine Neg (Neg); Ketones, Urine Neg (Neg); Leukocyte Esterase, Urine 3+ (Neg); Nitrite, Urine Pos (Neg); Protein, Urine 1+ (Neg); Urobilinogen, Urine 1+ (Normal)
[2022-01-15 20:08] LABS: Bacteria Many /hpf; Red Blood Cells, Urine 0-2 /hpf (0-2); Squamous Epithelial Cells Few /hpf (Few); White Blood Cells, Urine TNTC /hpf (0-5)
== END | disposition home or self-care (01) ==
LOC: LAB SHORT 14:20
PROVIDERS: Family Medicine
DX: N39.0 Urinary tract infection, site not specified (principal)
CPT/HCPCS: 81001; 87077; 87086; 87186

== ENCOUNTER → 2022-02-14 | Outpatient (CLI) | payer MEDICARE, OTHER ==
[2022-02-14 12:07] LABS: Source, Urine Clean Catch
[2022-02-14 13:20] LABS: Appearance, Urine Hazy (Clear); Bilirubin, Urine Neg (Neg); Blood, Urine Neg (Neg); Color, Urine Yellow (P-Yellow); Glucose Qualitative, Urine Neg (Neg); Ketones, Urine Neg (Neg); Leukocyte Esterase, Urine Neg (Neg); Nitrite, Urine Pos (Neg); Protein, Urine Neg (Neg); Urobilinogen, Urine NORM (Normal)
[2022-02-14 13:55] LABS: Red Blood Cells, Urine 0-2 /hpf (0-2)
[2022-02-14 13:56] LABS: Bacteria Many /hpf; Squamous Epithelial Cells Mod /hpf (Few)
== END | disposition home or self-care (01) ==
LOC: LAB SHORT 12:04 → LAB 12:04
PROVIDERS: Family Medicine
DX: N39.0 Urinary tract infection, site not specified (principal)
CPT/HCPCS: 81001; 87077; 87086; 87186

== ENCOUNTER → 2022-04-17 | Outpatient (CLI) | payer MEDICARE, OTHER ==
[2022-04-17 12:44] LABS: Appearance, Urine Hazy (Clear); Bilirubin, Urine Neg (Neg); Blood, Urine Neg (Neg); Color, Urine Yellow (P-Yellow); Glucose Qualitative, Urine Neg (Neg); Ketones, Urine Neg (Neg); Leukocyte Esterase, Urine Neg (Neg); Nitrite, Urine Pos (Neg); Protein, Urine Neg (Neg); Specific Gravity, Urine 1.015 (1.003-1.022); Urobilinogen, Urine NORM (Normal)
[2022-04-17 13:16] LABS: Bacteria Many /hpf; Red Blood Cells, Urine 0-2 /hpf (0-2); Squamous Epithelial Cells Few /hpf (Few)
== END ==
LOC: LAB SHORT 08:30
PROVIDERS: Family Medicine
DX: N39.0 Urinary tract infection, site not specified (principal)
CPT/HCPCS: 81001

== ENCOUNTER 2022-04-21 21:26 | Emergency (ER) | payer MEDICARE, OTHER ==
[~2022-04-21] VITALS: Ht 170.2 cm; Wt 78.5 kg
[2022-04-21 21:54] LABS: BASOPHILS ABSOLUTE AUTO 0.09 K/mm3 (0.00-0.23); BASOPHILS PERCENT AUTO 1 % (0-2); EOSINOPHILS ABSOLUTE AUTO 0.22 K/mm3 (0.00-0.68); EOSINOPHILS PERCENT AUTO 3 % (0-6); Hematocrit 39.2 % (33.0-51.0); Hemoglobin 13.7 g/dL (11.5-16.0); IMMATURE GRAN ABSOLUTE AUTO 0.03 K/mm3 (0.00-0.10); IMMATURE GRAN PERCENT AUTO 0 % (0-1); LYMPHOCYTES ABSOLUTE AUTO 2.18 K/mm3 (0.84-5.20); LYMPHOCYTES PERCENT AUTO 27 % (21-46); MONOCYTES ABSOLUTE AUTO 0.73 K/mm3 (0.16-1.47); MONOCYTES PERCENT AUTO 9 % (4-13); Mean Corpuscular HGB 31.5 pg (26.0-34.0); Mean Corpuscular HGB Conc 34.9 g/dL (31.5-36.5); Mean Corpuscular Volume 90 fL (80-100); Mean Platelet Volume 8.6 fL (9.1-12.4); NEUTROPHILS ABSOLUTE AUTO 4.93 K/mm3 (1.96-9.15); NEUTROPHILS PERCENT AUTO 60 % (41-73); Platelet Count 243 K/mm3 (150-400); RDW Coefficient Variation 12.7 % (11.7-14.2); Red Blood Cell Count 4.35 M/mm3 (3.80-5.20); White Blood Cell Count 8.18 K/mm3 (4.00-11.30)
[2022-04-21 22:10] LABS: Albumin, Blood 3.6 g/dL (3.4-5.0); Albumin/Globulin Ratio 1.2 (0.8-1.8); Bilirubin, Total 0.5 mg/dL (0.1-1.0); Bun/Creatinine Ratio 34.1 (12.0-20.0); Calcium, Blood 9.4 mg/dL (8.5-10.1); Creatinine, Blood 0.59 mg/dL (0.40-1.00); Globulin, Blood 2.9 g/dL (2.2-4.0); Potassium, Blood 3.8 mmol/L (3.5-5.5); Total Protein, Blood 6.5 g/dL (6.4-8.2)
== END 2022-04-22 00:36 | disposition home or self-care (01) ==
LOC: ER 21:26
PROVIDERS: Emergency Medicine
DX: R04.0 Epistaxis (principal); I11.0 Hypertensive heart disease with heart failure; I50.9 Heart failure, unspecified; Z88.5 Allergy status to narcotic agent; Z88.8 Allergy status to other drugs, medicaments and biological substances; Z79.899 Other long term (current) drug therapy
CPT/HCPCS: 80053; 85025; 99283

== ENCOUNTER → 2022-05-20 | Outpatient (CLI) | payer MEDICARE, OTHER ==
[2022-05-20 13:42] LABS: Source, Urine Clean Catch
[2022-05-20 15:20] LABS: Appearance, Urine Hazy (Clear); Bilirubin, Urine Neg (Neg); Blood, Urine Neg (Neg); Color, Urine Yellow (P-Yellow); Glucose Qualitative, Urine Neg (Neg); Ketones, Urine Neg (Neg); Leukocyte Esterase, Urine 2+ (Neg); Nitrite, Urine Pos (Neg); Protein, Urine Neg (Neg); Specific Gravity, Urine 1.015 (1.003-1.022); Urobilinogen, Urine NORM (Normal)
[2022-05-20 15:45] LABS: Bacteria Many /hpf; Red Blood Cells, Urine 0-2 /hpf (0-2); Squamous Epithelial Cells Few /hpf (Few)
== END ==
LOC: LAB 13:00 → LAB SHORT 13:00
PROVIDERS: Family Medicine
DX: N39.0 Urinary tract infection, site not specified (principal)
CPT/HCPCS: 81001

== ENCOUNTER 2022-06-30 05:20 | Emergency (ER) | payer MEDICARE, OTHER ==
[~2022-06-30] VITALS: Ht 170.2 cm; Wt 79.4 kg
[2022-06-30] MEDS ORDERED: ASPI81CH PO (05:34)
[2022-06-30] MEDS ORDERED: FURO20 PO (05:37)
[2022-06-30] MEDS ORDERED: POTA8 PO (05:38)
[2022-06-30] MEDS ORDERED: Vitamin D1000 UNI1 PO (05:40)
== END 2022-06-30 07:40 | disposition home or self-care (01) ==
LOC: ER 05:20
DX: R04.0 Epistaxis (principal); E78.5 Hyperlipidemia, unspecified; I11.0 Hypertensive heart disease with heart failure; I50.9 Heart failure, unspecified; E11.40 Type 2 diabetes mellitus with diabetic neuropathy, unspecified; Z87.891 Personal history of nicotine dependence; Z79.82 Long term (current) use of aspirin; Z79.84 Long term (current) use of oral hypoglycemic drugs
CPT/HCPCS: A9270

== ENCOUNTER 2022-07-15 12:15 | Emergency (ER) | payer MEDICARE, OTHER ==
[~2022-07-15] VITALS: Ht 167.6 cm; Wt 72.6 kg
[~2022-07-15 12:15] MED LIST changes: +ASPI81CH PO; +CHLO25B PO; +FURO20 PO; -Hygroton50 MG PO; +POTA8 PO; +Vitamin D1000 UNI1 PO
[2022-07-15] MEDS ORDERED: METF500 PO (12:55)
[2022-07-15] MEDS ORDERED: BISA10S PR (12:58)
== END 2022-07-15 16:35 | disposition home or self-care (01) ==
LOC: ER 12:15
DX: R04.0 Epistaxis (principal); Z88.5 Allergy status to narcotic agent; Z88.8 Allergy status to other drugs, medicaments and biological substances; Z79.899 Other long term (current) drug therapy; Z79.82 Long term (current) use of aspirin; E78.5 Hyperlipidemia, unspecified; I11.0 Hypertensive heart disease with heart failure; I50.9 Heart failure, unspecified; I48.91 Unspecified atrial fibrillation; D64.9 Anemia, unspecified
CPT/HCPCS: 99283; A9270

== ENCOUNTER 2022-07-25 15:49 | Emergency (ER) | payer MEDICARE, OTHER ==
[~2022-07-25] VITALS: Ht 170.2 cm; Wt 74.8 kg
[2022-07-25 16:27] LABS: Source, Urine Clean Catch
[2022-07-25 16:31] LABS: Appearance, Urine Hazy (Clear); Bilirubin, Urine Neg (Neg); Blood, Urine Neg (Neg); Color, Urine Yellow (P-Yellow); Glucose Qualitative, Urine Neg (Neg); Ketones, Urine Neg (Neg); Leukocyte Esterase, Urine 1+ (Neg); Nitrite, Urine Pos (Neg); Protein, Urine Neg (Neg); Specific Gravity, Urine 1.015 (1.003-1.022); Urobilinogen, Urine NORM (Normal)
[2022-07-25] MEDS ORDERED: CEPH500 PO (17:54)
[2022-07-25 17:57] LABS: Bacteria Many /hpf; Red Blood Cells, Urine 0-2 /hpf (0-2); Squamous Epithelial Cells Rare /hpf (Few)
== END 2022-07-25 18:39 | disposition home or self-care (01) ==
LOC: ER 15:49
PROVIDERS: Physician Assistant
DX: S05.42XA Penetrating wound of orbit with or without foreign body, left eye, initial encounter (principal); N39.0 Urinary tract infection, site not specified; E78.5 Hyperlipidemia, unspecified; I11.0 Hypertensive heart disease with heart failure; I50.9 Heart failure, unspecified; I48.91 Unspecified atrial fibrillation; D64.9 Anemia, unspecified; Z88.5 Allergy status to narcotic agent; Z88.8 Allergy status to other drugs, medicaments and biological substances; Z79.899 Other long term (current) drug therapy; Z79.82 Long term (current) use of aspirin; Z79.84 Long term (current) use of oral hypoglycemic drugs; W18.30XA Fall on same level, unspecified, initial encounter
CPT/HCPCS: 12002; 70450; 81001; 87077; 87086; 87186; 99284-25; A9270

== ENCOUNTER → 2022-09-09 | Outpatient (CLI) | payer MEDICARE, OTHER ==
[~2022-09-09] MED LIST changes: +CEPH500 PO
[2022-09-09 11:37] LABS: Source, Urine Clean Catch
[2022-09-09 13:22] LABS: Appearance, Urine Hazy (Clear); Bilirubin, Urine Neg (Neg); Blood, Urine 1+ (Neg); Color, Urine Yellow (P-Yellow); Glucose Qualitative, Urine Neg (Neg); Ketones, Urine Neg (Neg); Leukocyte Esterase, Urine 3+ (Neg); Nitrite, Urine Pos (Neg); Protein, Urine Neg (Neg); Urobilinogen, Urine NORM (Normal); pH, Urine 6.5 (5.0-8.0)
[2022-09-09 13:49] LABS: Bacteria Many /hpf; Squamous Epithelial Cells Few /hpf (Few); White Blood Cells, Urine 25-50 /hpf (0-5)
== END ==
LOC: LAB 11:35 → LAB SHORT 11:35
PROVIDERS: Family Medicine
DX: N39.0 Urinary tract infection, site not specified (principal)
CPT/HCPCS: 81001; 87077; 87086; 87186

== ENCOUNTER → 2022-10-04 | Outpatient (CLI) | payer MEDICARE, OTHER ==
[2022-10-04 14:51] LABS: Source, Urine Clean Catch
[2022-10-04 15:54] LABS: Appearance, Urine Cloudy (Clear); Bilirubin, Urine Neg (Neg); Blood, Urine 2+ (Neg); Color, Urine Yellow (P-Yellow); Glucose Qualitative, Urine Neg (Neg); Ketones, Urine Neg (Neg); Leukocyte Esterase, Urine 3+ (Neg); Nitrite, Urine Pos (Neg); Protein, Urine Neg (Neg); Urobilinogen, Urine NORM (Normal)
[2022-10-04 16:04] LABS: Squamous Epithelial Cells Few /hpf (Few)
[2022-10-04 16:07] LABS: Bacteria Many /hpf
[2022-10-04 16:08] LABS: Amorphous Light (0-Heavy); Calcium Oxalate Crystals Mod /hpf; Red Blood Cells, Urine 0-2 /hpf (0-2); White Blood Cells, Urine TNTC /hpf (0-5)
== END ==
LOC: LAB SHORT 06:50 → LAB 06:50
PROVIDERS: Family Medicine
DX: N39.0 Urinary tract infection, site not specified (principal)
CPT/HCPCS: 81001; 87077; 87086; 87186

== ENCOUNTER → 2022-12-02 | Outpatient (CLI) | payer MEDICARE, OTHER ==
[2022-12-02 12:11] LABS: Source, Urine Clean Catch
[2022-12-02 12:42] LABS: Appearance, Urine Hazy (Clear); Bilirubin, Urine Neg (Neg); Blood, Urine 1+ (Neg); Color, Urine Yellow (P-Yellow); Glucose Qualitative, Urine Neg (Neg); Ketones, Urine Neg (Neg); Leukocyte Esterase, Urine 3+ (Neg); Nitrite, Urine Pos (Neg); Protein, Urine 1+ (Neg); Specific Gravity, Urine 1.005 (1.003-1.022); Urobilinogen, Urine 2+ (Normal)
[2022-12-02 13:30] LABS: Bacteria Many /hpf; Squamous Epithelial Cells Many /hpf (Few); White Blood Cells, Urine 25-50 /hpf (0-5)
== END | disposition home or self-care (01) ==
LOC: LAB SHORT 09:05 → LAB 09:05
PROVIDERS: Family Medicine
DX: N39.0 Urinary tract infection, site not specified (principal)
CPT/HCPCS: 81001; 87086

== ENCOUNTER → 2023-01-03 | Outpatient (CLI) | payer MEDICARE, OTHER ==
[2023-01-03 14:03] LABS: Source, Urine Clean Catch
[2023-01-03 14:49] LABS: Appearance, Urine Hazy (Clear); Bilirubin, Urine Neg (Neg); Blood, Urine Neg (Neg); Glucose Qualitative, Urine 2+ (Neg); Ketones, Urine Neg (Neg); Leukocyte Esterase, Urine 3+ (Neg); Nitrite, Urine Pos (Neg); Protein, Urine Neg (Neg); Specific Gravity, Urine 1.015 (1.003-1.022); Urobilinogen, Urine NORM (Normal)
[2023-01-03 15:05] LABS: Color, Urine Pale Yellow (P-Yellow); Hyaline Casts 0-2 /lpf (0-2)
[2023-01-03 15:06] LABS: Bacteria Many /hpf; Red Blood Cells, Urine 0-2 /hpf (0-2); Squamous Epithelial Cells Few /hpf (Few); White Blood Cells, Urine 25-50 /hpf (0-5)
== END | disposition home or self-care (01) ==
LOC: LAB SHORT 13:59
PROVIDERS: Nurse Practitioner Family
DX: N39.0 Urinary tract infection, site not specified (principal)
CPT/HCPCS: 81001; 87077; 87086; 87186

== ENCOUNTER → 2023-02-12 | Outpatient (CLI) | payer MEDICARE, OTHER ==
[2023-02-12 10:22] LABS: Source, Urine Clean Catch
[2023-02-12 12:16] LABS: Appearance, Urine Cloudy (Clear); Bilirubin, Urine Neg (Neg); Blood, Urine Neg (Neg); Color, Urine Yellow (P-Yellow); Glucose Qualitative, Urine Neg (Neg); Ketones, Urine Neg (Neg); Leukocyte Esterase, Urine Neg (Neg); Nitrite, Urine Neg (Neg); Protein, Urine 1+ (Neg); Urobilinogen, Urine 2+ (Normal)
[2023-02-12 12:58] LABS: Bacteria Many /hpf; Mucus Light (0-Heavy); Red Blood Cells, Urine Not Seen /hpf (0-2); Squamous Epithelial Cells Many /hpf (Few)
== END | disposition home or self-care (01) ==
LOC: LAB SHORT 09:50 → LAB 09:50
PROVIDERS: Nurse Practitioner Family
DX: N39.0 Urinary tract infection, site not specified (principal)
CPT/HCPCS: 81001; 87077; 87086; 87186

== ENCOUNTER 2023-08-15 15:27 | Emergency (ER) | payer MEDICARE, OTHER ==
[~2023-08-15] VITALS: Ht 170.2 cm; Wt 59.0 kg
[~2023-08-15 15:27] MED LIST changes: +METFORMIN HCL500 M2 PO; +NYAMYC1513 TOP; +QUET25 PO
[2023-08-15 17:15] VITALS: BP 173/72
== END 2023-08-15 17:56 | disposition home or self-care (01) ==
LOC: ER 15:27
DX: S61.412A Laceration without foreign body of left hand, initial encounter (principal); S09.90XA Unspecified injury of head, initial encounter; X58.XXXA Exposure to other specified factors, initial encounter; F03.90 Unspecified dementia, unspecified severity, without behavioral disturbance, psychotic disturbance, mood disturbance, and anxiety; I11.0 Hypertensive heart disease with heart failure; I50.9 Heart failure, unspecified; I48.91 Unspecified atrial fibrillation; E11.40 Type 2 diabetes mellitus with diabetic neuropathy, unspecified; F32.A Depression, unspecified; Z88.5 Allergy status to narcotic agent; Z88.8 Allergy status to other drugs, medicaments and biological substances; Z79.84 Long term (current) use of oral hypoglycemic drugs; Z79.82 Long term (current) use of aspirin; Z79.899 Other long term (current) drug therapy; Z87.891 Personal history of nicotine dependence
CPT/HCPCS: 70450; 73110; 99284-25; A9270

== ENCOUNTER → 2024-01-28 | Outpatient (CLI) | payer MEDICARE, OTHER ==
[2024-01-28 12:43] LABS: Source, Urine Voided
[2024-01-28 14:19] LABS: Appearance, Urine Hazy (Clear); Bilirubin, Urine Neg (Neg); Blood, Urine Neg (Neg); Color, Urine Yellow (P-Yellow); Glucose Qualitative, Urine Neg (Neg); Ketones, Urine Neg (Neg); Leukocyte Esterase, Urine 2+ (Neg); Nitrite, Urine Pos (Neg); Protein, Urine Neg (Neg); Urobilinogen, Urine NORM (Normal)
[2024-01-28 14:36] LABS: Red Blood Cells, Urine 0-2 /hpf (0-2)
[2024-01-28 14:37] LABS: Amorphous Light (0-Heavy); Bacteria Many /hpf; Calcium Oxalate Crystals Rare /hpf; Mucus Light (0-Heavy); Squamous Epithelial Cells Few /hpf (Few)
== END ==
LOC: LAB 12:39 → LAB SHORT 12:39
PROVIDERS: Nurse Practitioner Family
DX: N39.0 Urinary tract infection, site not specified (principal)
CPT/HCPCS: 81001; 87077; 87086; 87186

== ENCOUNTER 2024-03-21 20:40 | Emergency (ER) | payer MEDICARE, OTHER ==
[~2024-03-21] VITALS: Ht 172.7 cm; Wt 72.6 kg
[~2024-03-21 20:40] MED LIST changes: +CEFD300 PO; +ONDA4
[2024-03-21 23:17] LABS: BASOPHILS ABSOLUTE AUTO 0.07 K/mm3 (0.00-0.23); BASOPHILS PERCENT AUTO 1 % (0-2); EOSINOPHILS ABSOLUTE AUTO 0.14 K/mm3 (0.00-0.68); EOSINOPHILS PERCENT AUTO 2 % (0-6); Hematocrit 35.8 % (33.0-51.0); IMMATURE GRAN ABSOLUTE AUTO 0.02 K/mm3 (0.00-0.10); IMMATURE GRAN PERCENT AUTO 0 % (0-1); LYMPHOCYTES ABSOLUTE AUTO 1.68 K/mm3 (0.84-5.20); LYMPHOCYTES PERCENT AUTO 23 % (21-46); MONOCYTES ABSOLUTE AUTO 0.67 K/mm3 (0.16-1.47); MONOCYTES PERCENT AUTO 9 % (4-13); Mean Corpuscular HGB 31.1 pg (26.0-34.0); Mean Corpuscular HGB Conc 33.5 g/dL (31.5-36.5); Mean Corpuscular Volume 93 fL (80-100); Mean Platelet Volume 8.6 fL (9.1-12.4); NEUTROPHILS ABSOLUTE AUTO 4.72 K/mm3 (1.96-9.15); NEUTROPHILS PERCENT AUTO 65 % (41-73); Platelet Count 254 K/mm3 (150-400); RDW Coefficient Variation 12.8 % (11.7-14.2); RDW Standard Deviation 43.4 fL (35.1-46.3); Red Blood Cell Count 3.86 M/mm3 (3.80-5.20)
[2024-03-21 23:22] VITALS: BP 136/78
[2024-03-21 23:32] LABS: Albumin, Blood 3.4 g/dL (3.4-5.0); Albumin/Globulin Ratio 1.1 (0.8-1.8); Bilirubin, Total 0.5 mg/dL (0.1-1.0); Bun/Creatinine Ratio 34.5 (12.0-20.0); Calcium, Blood 9.2 mg/dL (8.5-10.1); Creatinine, Blood 0.72 mg/dL (0.40-1.00); Globulin, Blood 3.2 g/dL (2.2-4.0); Potassium, Blood 3.7 mmol/L (3.5-5.5); Total Protein, Blood 6.6 g/dL (6.4-8.2)
== END 2024-03-22 00:32 | disposition home or self-care (01) ==
LOC: ER 20:40
PROVIDERS: Student in an Organized Health Care Education/Training Program
DX: S00.83XA Contusion of other part of head, initial encounter (principal); W18.30XA Fall on same level, unspecified, initial encounter; Z88.8 Allergy status to other drugs, medicaments and biological substances; Z88.5 Allergy status to narcotic agent; Z79.899 Other long term (current) drug therapy; Z79.84 Long term (current) use of oral hypoglycemic drugs; Z79.82 Long term (current) use of aspirin; E78.5 Hyperlipidemia, unspecified; I11.0 Hypertensive heart disease with heart failure; I50.9 Heart failure, unspecified; I48.91 Unspecified atrial fibrillation; E11.40 Type 2 diabetes mellitus with diabetic neuropathy, unspecified; Z87.891 Personal history of nicotine dependence
CPT/HCPCS: 70450; 80053; 85025; 99284-25

== ENCOUNTER → 2024-03-24 | Outpatient (CLI) | payer MEDICARE, OTHER ==
[2024-03-24 11:00] LABS: Source, Urine Voided
[2024-03-24 11:58] LABS: Appearance, Urine Hazy (Clear); Bilirubin, Urine Neg (Neg); Blood, Urine Neg (Neg); Color, Urine Yellow (P-Yellow); Glucose Qualitative, Urine 3+ (Neg); Ketones, Urine Neg (Neg); Leukocyte Esterase, Urine 3+ (Neg); Nitrite, Urine Pos (Neg); Protein, Urine Neg (Neg); Urobilinogen, Urine NORM (Normal); pH, Urine 6.5 (5.0-8.0)
[2024-03-24 12:22] LABS: Red Blood Cells, Urine 0-2 /hpf (0-2); Squamous Epithelial Cells Few /hpf (Few); White Blood Cells, Urine 25-50 /hpf (0-5)
[2024-03-24 12:23] LABS: Bacteria Many /hpf
== END ==
LOC: LAB SHORT 10:55 → LAB 10:55
PROVIDERS: Nurse Practitioner Family
DX: N39.0 Urinary tract infection, site not specified (principal); B96.1 Klebsiella pneumoniae [K. pneumoniae] as the cause of diseases classified elsewhere; Z16.11 Resistance to penicillins
CPT/HCPCS: 81001; 87077; 87086; 87186

== ENCOUNTER → 2024-07-13 | Outpatient (CLI) | payer MEDICARE, OTHER ==
[2024-07-13 15:31] LABS: Source, Urine Clean Catch
[2024-07-13 16:22] LABS: Appearance, Urine Hazy (Clear); Bilirubin, Urine Neg (Neg); Blood, Urine 2+ (Neg); Color, Urine Yellow (P-Yellow); Glucose Qualitative, Urine Neg (Neg); Ketones, Urine Neg (Neg); Leukocyte Esterase, Urine 3+ (Neg); Nitrite, Urine Neg (Neg); Protein, Urine Neg (Neg); Urobilinogen, Urine NORM (Normal)
[2024-07-13 17:00] LABS: White Blood Cells, Urine 25-50 /hpf (0-5)
[2024-07-13 17:01] LABS: Bacteria Many /hpf; Squamous Epithelial Cells Few /hpf (Few)
== END | disposition home or self-care (01) ==
LOC: LAB 15:26 → LAB SHORT 15:26
PROVIDERS: Nurse Practitioner Family
DX: N39.0 Urinary tract infection, site not specified (principal)
CPT/HCPCS: 81001; 87077; 87086; 87186